=== PATIENT | male | born 1975 | race Caucasian/White ===

== ENCOUNTER 2023-03-15 19:29 | Emergency (ER) | payer BC, OTHER ==
--- OUTSIDE RECORDS SUMMARY | 2023-03-15 19:36 | XMS REPORT | Continuity of Care Document ---
:1975 Author Organization [facility] t Address [address] [facility] [address] [place] [id number] Care Team Providers Name Role Phone JANKI LEDESMA Primary Care Physician Unavailable Adriana Murguia MD Attending Clinician Kaden MARTIN, Matilda Rayo Attending Clinician Carlo Garcia MD Attending Clinician Zina MARTIN, Pawel Parker Attending Clinician [phone] Bernardino Albarran MD Attending Clinician Radha Metzger CRNA Attending Clinician [phone] Bernardino Rubio MD Attending Clinician [phone] TRU KAN Attending Clinician Unavailable DANIELLA BUI Attending Clinician Unavailable CRISTOBAL JONES Attending Clinician Unavailable ADRIANA JASSO Attending Clinician Unavailable FLETCHER RHOADES Attending Clinician Unavailable GERALD LEMUS Attending Clinician Unavailable Fay Finley Attending Clinician Abrahan Purvis Attending Clinician CARLO GARCIA Admitting Clinician Unavailable MD MATILDA ALFONSO Admitting Clinician Unavailable DANIELLA BUI Admitting Clinician Unavailable CHECO NAJERA Admitting Clinician Unavailable ALCIRA ROSE Admitting Clinician Unavailable GERALD LEMUS Admitting Clinician Unavailable Fay Finley Admitting Clinician VannesaErika Admitting Clinician Payers Payer Name Policy Type Policy Number Effective Date Expiration Date Soo RIOS [id number] 2019 2020 ACCESS 00:00:00 00:00:00 CDC REVIEW [id number] 2020 2020 UNINSURED 00:00:00 00:00:00 Problems Condition Condition Condition Status Onset Resolution Last Treating Co mments Source Name Details Category Date Date Treatment Clinician Date Primary Primary Disease Active [facility] hypertensi hypertensi 04-14 st on on 00:00: Hospita 00 l Type 2 Type 2 Disease Active [facility] diabetes diabetes 04-14 st mellitus mellitus 00:00: Hospit a 00 l Abnormal Abnormal Disease Active Overview: [facility] stress ECG [facility] 10[facility] with 00:[facility]: g of this Medical treadmill treadmill 00 note Cent er might be different from the original. Added automatic ally from request for surgery [id number] Chest Chest Disease Active 2018-[address] [facility] pain, pain, 1-25 [facility] unspecifie unspecifie 00:00: Me dical d type d type [address] [place] [address] CHEST PAIN CHEST Diagnosis Active 2017-03-06 Memoria SINCE LAST PAIN SINCE 03-06 12:41:00 l NIGHT LAST NIGHT 00:00: Jose Alfredo egan Active 00 03/06/2017 [facility] CHEST PAIN CHEST Diagnosis Active 2017-03-13 Memoria PAIN 03-06 10:46:00 l Active 00:00: Eleazar 03/06/2017 00 [facility] RIGHT HAND RIGHT Diagnosis Active 2014-03-22 Memoria FX HAND FX 03-22 14:39:00 l Active 00:00: Eleazar 03/22/2014 00 [facility] ACS R/O ACS R/O Diagnosis Active 2014-03-23 Memoria Active 03-22 10:41:00 l 03/22/2014 00:00: Jose Alfredo egan [address] Dyspnea Dyspnea Problem Active 2017-03-10 Me moria (finding) (finding) 01:36:49 l Active Eleazar Problem 03/10/2017 [facility] Obstructiv Obstructi Problem Active 2020-07-05 Memoria e sleep ve sleep 02:00:51 l apnea apnea Eleazar (adult) (adult) (pediatric (pediatric ) ) Active Problem 07/05/2020 [facility] CHEST PAIN CHEST Diagnosis Active 2014-03-23 Memoria NOS PAIN NOS 10:41:00 l Active Jose Alfredo egan [facility] CHEST CHEST Diagnosis Active 2017-03-13 Mem oria PAIN, PAIN, 10:46:00 l UNSPECIFIE UNSPECIFIE He rmann D D Active [facility] Hypertensi Hypertens Problem Resolve 2017-03-10 Memoria ve krystian d 01:36:49 l disorder, disorder, Herm jose systemic systemic arterial arterial (disorder) (disorder) Resolved Problem 03/10/2017 [facility] Diabetes Diabetes Disease Recurre [facility] mellitus mellitus [facility] Hyperlipid Hyperlipid Disease Active [facility] Sleep Sleep Disease Active [facility] apnea apnea [facility] Allergies, Adverse Reactions, Alerts Allergy Allergy Status Severity Reaction(s) Onset Inactive Treating Comm ents Source Name Type Date Date Clinician QUINOLON Allergy Active Hives 2018- [facility] ES 1- 00:00: 00 Quinolon Propensi Active Hives 2018-[address] es ty to 1-25 [facility] adverse 00:00: Medical reaction 00 Center s Other Propensi Active Hives 2017-09 Flu[facility] Metho di ty to 2-[address] adverse 00:00: Hospita reaction 00 l s quinolon quinolon Active Tomásori a e e l antibiot antibiot Jose Alfredo egan ics ics Family History Family Member Diagnosis Comments Start Date Stop Date Source Natural father Hypertension [facility] Natural father Hypothyroidism [facility] Natural father Diabetes [facility] Natural father [facility] Natural father Heart disease [facility] Natural father Hyperlipidemia [facility] Natural father Diabetes [facility] Natural father Heart disease [facility] Natural father Hyperlipidemia [facility] Natural father Hypertension [facility] Maternal grandmother Cancer [facility] Maternal grandmother Nephrolithiasis [facility] Paternal grandmother Cancer [facility] Maternal grandfather Heart disease [facility] Natural mother Skin cancer [facility] Social History Social Habit Start Date Stop Date Quantity Comments Source History of tobacco Chews Tobacco [facility] Sexual orientation [facility] History [facility] History of Social 2022-04-18 2022-04-[address] function 00:00:00 00:00:00 Hospital Tobacco use and 2022-04-14 2022-04-14 User of [facility] exposure 00:00:00 00:00:00 smokeless Hospital tobacco History [facility] 2022-01-08 2022-01-[address] [facility] Places 00:00:00 00:00:00 Medical Ce nter Lived History [facility] 2022-01-08 2022-01-08 2 [facility] Homeless 00:00:00 00:00:00 Medical Center Last Year History [facility] 2022-01-08 2022-01-08 2 [facility] Med 00:00:00 00:00:[address] [facility] 2022-01-08 2022-01-08 2 [facility] Unable to 00:00:00 00:00:00 Medical Center Pay Alcohol intake 2022-01-07 2022-01-07 Current drinker [facility] 00:[facility]00 of alcohol [facility] Center (finding) Alcohol Comment 2020-10-16 2020-10-16 socially [facility] eileen 00:00:00 00:00:00 Medical Center Social History 2017-03-07 2017-03-07 [facility] kenya 02:11:50 02:11:50 Sex Ass[birth year] At [birth year] [facility] 00:00:00 00:00:00 Medical Center Smoking Status Start Date Stop Date Source Never smoked tobacco [facility] Medications Ordered Filled Start Stop Current Ordering Indication Dosage Frequency Signature Comments Components Source Medication Medication Date Date Medication? Clinician (SIG) Name Name metFORMIN Yes 1000mg Q.5D Take 1,000 [facility] (GLUCOPHAGE 8-[address] ) 1,000 mg 17:01: mouth 2 Hosp melany tablet 14 (two) l times a day with meals. carvediloL 2022-0 Yes 6.25mg Q.5D Take 6.25 [facility] (COREG) 8-[address] 6.25 MG 17:01: mouth 2 Hospita tablet 14 (two) l times a day with meals. isosorbide 2021-0 Yes 30mg QD Take 30 mg M ethodi mononitrate 8-[address] (IMDUR) 30 17:01: daily. Hospi ta MG 24 hr 14 l tablet pantoprazol 2021-0 Yes 40mg QD Take 40 mg Methodi e 8-[address] (PROTONIX) 17:01: daily. Hospi ta 40 MG EC 14 l tablet ranolazine 2021-0 Yes 500mg Q.5D Take 500 Me thodi (RANEXA) 8-[address] 500 MG 12 17:01: mouth 2 Hospi ta hr ER 14 (two) l tablet times a day. fenofibrate 2021-0 Yes 54mg QD Take 54 mg [facility] (LOFIBRA) 8-[address] 54 MG 17:01: nightly. Hospita tablet 14 l glipiZIDE 2021-0 Yes 5mg QD Take 5 mg Met hodi (GLUCOTROL) 8-[address] 5 MG tablet 17:01: daily. Hosp melany 14 l aspirin 2021-0 Yes 81mg QD Take 81 mg Meth ganga (ECOTRIN) 8-[address] 81 MG 17:01: nightly. Hospita enteric 14 l coated tablet atorvastati 2021-0 2021- No 40mg QD Take 40 mg Methodi n (LIPITOR) 8-10 08-[address] 40 mg 17:01: 00:00 nightly. Hospita tablet 14 :00 l famotidine 2021-0 2021- No 20mg Q.5D Take 1 Meth ganga (Pepcid) 20 04-15-08 tablet (20 s t MG tablet 00:00: 04:59 mg total) Ho spita 00 :00 by mouth 2 l (two) times a day for 30 days. dicyclomine 2021-0 2021- No 20mg Q.25D Take 1 Me thodi (BENTYL) 20 04-15-08 tablet (20 s t mg tablet 00:00: 04:59 mg total) Ho spita 00 :00 by mouth 4 l (four) times a day for 30 days. nitroglycer 2021- No .3mg QD Place 1 Me thodi in 04-15 patch (0.3 st (Nitro-Dur) 00:00: 04:59 mg total) Hospita 0.3 mg/hr 00 :00 on the l skin daily for 30 days. rosuvastati 2021- No 20mg QD Take 1 Met hodi n (CRESTOR) 04-15 tablet (20 s t 20 mg 00:00: 04:59 mg total) Hospit a tablet 00 :00 by mouth l daily for 30 days. carvediloL Yes 6.25mg Take 6.[address] (COREG) 5-05 mg by [facility] 6.25 MG 13:43: mouth 2 Medical tablet 01 (two) Center times daily with breakfast and dinner. atorvastati Yes 40mg QD Take [address] n (LIPITOR) 5-05 by mouth Luke s 40 MG 13:43: nightly. Medical tablet 01 Center multivitami Yes 1{tbl} QD Take [address] n 5-04 tablet by [facility] (THERAGRAN) 13:43: mouth Medic al tablet 38 nightly. Center metFORMIN Yes 1000mg Take [address] (GLUCOPHAGE 2-11 tablet [facility] ) 1000 MG 00:00: (1,000 mg Med ical tablet 00 total) by Center mouth 2 (two) times daily with breakfast and dinner. fenofibrate Yes 54mg QD Take [address] (LOFIBRA) 2-09 tablet (54 Luke s 54 MG 00:00: mg total) Medical tablet 00 by mouth Center nightly. aspirin 81 Yes 81mg QD Take 1 [facility] t MG EC 2-09 tablet (81 [facility] tablet 00:00: mg total) Medica l 00 by mouth Center nightly. olmesartan Yes 20mg QD Take 1 [facility] t (BENICAR) 2-09 tablet (20 Luke s 20 MG 00:00: mg total) Medical tablet 00 by mouth Center nightly. amoxicillin 2017-09- No Metho di -pot -18 04-16 st clavulanate 00:00: 00:00 Hospi ta (AUGMENTIN) 00 :00 l 875-125 mg per tablet olmesartan 2017-09 Yes Methodi (BENICAR) 10-22 st 20 MG 00:00: Hospita tablet 00 l rosuvastati 2017-09- No Metho di n (CRESTOR) 10-21 st 40 MG 00:00: 00:00 Hospita tablet 00 :00 l metoprolol 2017-09- No Method i succinate 10-12 st XL 00:00: 00:00 Hospita (TOPROL-XL) 00 :00 l 25 mg 24 hr tablet metFORMIN 2017-09- No Methodi (GLUCOPHAGE 09-21 ) 500 mg 00:00: 00:00 Hospita tablet 00 :00 l testosteron 2017-09 Yes Method i e cypionate 09-20 (DEPOTESTOT 00:00: Hospit a ERONE 00 l CYPIONATE) 200 mg/mL injection Lipitor No Notes: Memoria 7- (Same as: l 02:00: Lipitor) aspirin 81 Yes 81 mg = 1 Me moria mg tablet, 6-30 tab, PO, l enteric 21:51: Daily, # Jose Alfredo n coated 00 30 tab, 0 Refill(s), Pharmacy: [facility] atorvastati Yes 40 mg = 1 M emoria n 40 mg 6-30 tab, PO, l oral tablet 21:51: Bedtime, # Eleazar 00 30 tab, 0 Refill(s), Pharmacy: [facility] aspirin 81 No Notes: Do Me moria mg tablet, 6-30 not crush l enteric 14:00: or chew. Jose Alfredo n coated 00 (Same As: Ecotrin) Morphine No Notes: Memoria 6-30 (Same l 03:11: as:MORPhin e Sulfate) Saline No Notes: Memoria Flush 0.9% 6-30 (Same as: l 02:00: BD Posiflush) CPAP No Bedtime, 0 Memoria Machine 6-29 Refill(s) l 17:15: Escitalopra Yes 10 mg = 1 M emoria m 10 MG 03-06 tab, PO, l Oral Tablet 17:13: Daily, 0 He rmann [Lexapro] 00 Refill(s) metoprolol Yes 25 mg = 1 Me moria tartrate 25 03-06 tab, PO, l mg oral 17:12: QAM, 0 [place] tablet 00 Refill(s) atorvastati No 20 mg, PO, Memoria n 03-06 Daily, 0 l 15:07: Refill(s) [place] metoprolol No PO, Daily, M emoria extended 03-06 0 l release 15:07: Refill(s) Lynda nn 00 Benicar Yes 20 mg, PO, Aj melchor 03-06 QPM, 0 l 15:07: Refill(s) Saline No Notes: Memoria Flush 0.9% 03-06 (Same as: l 15:06: BD Posiflush) Adenosine No 99.2729 Memor ia 03-06 mg, Route: l 15:06: IVP, ONCE, Dosing Weight 118.182, kg, Priority: Routine, Start date: 03/06/17 10:06:00 CDT, Stop date: 03/06/17 10:06:00 CDT Ondansetron No Notes: Aj melchor 03-06 (Same as: l 15:06: Zofran) Morphine No Notes: Memoria 03-06 (Same l 15:06: as:MORPhin e Sulfate) Nitroglycer No Notes: Aj melchor in 03-06 (Same l 15:06: as:Nitroqu ick, Nitrostat) "Do Not Crush" Sublingual tablet Nitroglycer No 0.4 mg, Mem oria in 03-06 Route: SL, l 13:22: ONCE, Dosing Weight 118.182, kg, Priority: STAT, Start date: 03/06/17 8:22:00 CDT, Stop date: 03/06/17 8:22:00 CDT Aspirin No 325 mg, Memoria 03-06 Route: PO, l 13:22: Drug form: Eleazar 00 TAB, ONCE, Dosing Weight 118.182, kg, Priority: STAT, Start date: 03/06/17 8:22:00 CDT, Stop date: 03/06/17 8:22:00 CDT atorvastati No 20 mg, Aj melchor n 7-17 Route: PO, l 02:00: Drug form: Eleazar 00 TAB, Bedtime, Dosing Weight 117.301, kg, Start date: 03/23/14 21:00:00, Duration: 30 day, Stop date: 04/21/14 21:00:00 atorvastati Yes 10 mg = 1 M emoria n 10 mg 7-16 tab, PO, l oral tablet 22:49: Bedtime, # Eleazar 00 30 tab, 0 Refill(s) Acetaminoph Yes 1 tab, PO, Memoria en 325 MG / 03-23 Q4H, Pain, l Hydrocodone 22:45: # 50 tab, H ermann Bitartrate 00 0 5 MG Oral Refill(s) Tablet [[place] 5/325] tramadol Yes 50 mg = 1 Aj melchor hydrochlori -16 tab, PO, l de 50 MG 22:45: Q6H, # 50 Herm jose Oral Tablet 00 tab, 0 Refill(s) metoprolol Yes 25 mg = 1 Me moria tartrate 25 7-16 tab, PO, l mg oral 22:45: Daily, # Jose Alfredo n tablet 00 30 tab, 0 Refill(s) atorvastati No 20 mg = 1 M emoria n 20 mg 7-16 tab, PO, l oral tablet 22:45: Bedtime, # Eleazar 00 30 tab, 0 Refill(s) tramadol No Notes: Not Mem oria hydrochlori 16 to exceed l de 50 MG 20:57: 400mg/day. Her redmond Oral Tablet 00 (Same As: Ultram) Acetaminoph No Notes: Aj melchor en 325 MG / 03-23 (Same as: l Hydrocodone 17:09: [place] Lynda nn Bitartrate 00 325/5) Do 5 MG Oral not exceed Tablet 4gm/day of [[place] acetaminop 5/325] hen. metoprolol No Notes: Memor ia tartrate -16 (Same as: l 14:00: Lopressor) [place] Saline No Notes: Memoria Flush 0.9% 03-23 (Same as: l 02:00: BD [place] Posiflush) Morphine No 4 mg, Memoria 03-22 Route: l 23:09: IVP, ONCE, [place] Dosing Weight 118.182, kg, Start date: 03/22/14 18:09:00, Stop date: 03/22/14 18:09:00 metoprolol No 25 mg, Memor ia tartrate 03-22 Route: PO, l 23:00: Drug form: Eleazar TAB, Q6H, Dosing Weight 118.182, kg, Start date: 03/22/14 18:00:00, Duration: 30 day, Stop date: 04/21/14 12:00:00 potassium No Notes: Memori a phosphate-s 03-22 Non-Fomrul l odium 23:00: ghada Drug. [place] phosphate (Same as: 250 mg-45 K-Phos) mg-298 mg oral tablet metoprolol No Notes: Memor ia tartrate 03-22 (Same as: l 22:00: Lopressor) [place] 00 Neutra-Phos No Notes: Aj melchro oral powder 03-22 (Same as: l 21:51: Neutra-Frandy [place] 00 s) Each 1.25 gm pkt has 250mg phosphorou s. Mix w/2.5oz water and stir. Acetaminoph No 1 tab, Aj melchor en 325 MG / 03-22 Route: PO, l Hydrocodone 21:37: Dosing Herm jose Bitartrate 00 Weight 5 MG Oral 118.182, Tablet kg, ONCE, [[place] Start ] date: 03/22/14 16:37:00, Stop date: 03/22/14 16:37:00 Saline No Notes: Memoria Flush 0.9% 03-22 (Same as: l 21:35: BD Eleazar Posiflush) Nitroglycer No Notes: Aj melchor in 03-22 (Same l 21:35: as:Nitroqu Eleazar 00 ick, Nitrostat) "Do Not Crush" Sublingual tablet Morphine No Notes: Memoria 15 (Same l 21:35: as:MORPhin Eleazar 00 e Sulfate) Ondansetron No Notes: Aj melchor 15 (Same as: l 21:35: Zofran) Eleazar 00 Aspirin / No Notes: (Do Me moria Calcium 03-22 Not Crush) l Carbonate 18:35: Do not Jose Alfredo n 00 crush or chew. Acetaminoph No 1 tab, Aj melchor en 325 MG / 03-22 Route: PO, l Hydrocodone 18:16: Dosing Herm jose Bitartrate 00 Weight 5 MG Oral 118.182, Tablet kg, ONCE, [[place] Start 5/325] date: 03/22/14 13:16:00, Stop date: 03/22/14 13:16:00 Immunizations Ordered Immunization Filled Immunization Date Status Commen ts Source Name Name INFLUENZA (FLULAVAL, 2020-05-05 Completed [facility] FLUARIX)_0.5mL 00:00:00 Medical Ce nter QIV_IM (06mo+)([id number]) Vital Signs Vital Name Observation Time Observation Value Comments Source WEIGHT 2022-01-09 05:00:00 117.663 kg WEIGHT 2022-01-08 04:42:00 117.3 kg WEIGHT 2022-01-07 18:36:27 118.48 kg HEIGHT 2022-01-07 14:30:00 180.3 cm WEIGHT 2022-01-07 14:30:00 120.203 kg WEIGHT 2022-01-09 05:00:00 117.663 kg WEIGHT 2022-01-08 04:42:00 117.3 kg WEIGHT 2022-01-07 18:36:27 118.48 kg HEIGHT 2022-01-07 14:30:00 180.3 cm WEIGHT 2022-01-07 14:30:00 120.203 kg HEIGHT 2020-10-16 16:44:00 180.3 cm WEIGHT 2020-10-16 16:44:00 121.11 kg HEIGHT 2020-10-16 10:15:00 180.3 cm WEIGHT 2020-10-16 10:15:00 122.471 kg HEIGHT 2020-10-16 16:44:00 180.3 cm WEIGHT 2020-10-16 16:44:00 121.11 kg HEIGHT 2020-10-16 10:15:00 180.3 cm WEIGHT 2020-10-16 10:15:00 122.471 kg Systolic blood 2022-04-16 19:56:35 154 mm[Hg] [facility] pressure Diastolic blood 2022-04-16 19:56:35 98 mm[Hg] [facility] pressure Heart rate 2022-04-16 19:56:35 83 /min [facility] Body temperature 2022-04-16 19:56:35 36.17 Id[facility] Respiratory rate 2022-04-16 19:56:35 16 /min [facility] Oxygen saturation in 2022-04-16 19:56:35 100 /min [facility] Arterial blood by Pulse oximetry Body height 2022-04-16 17:03:00 177.8 cm [facility] Body weight 2022-04-16 17:03:00 106.595 kg [facility] BMI 2022-04-16 17:03:00 33.72 kg/m2 [facility] Heart Rate 2017-03-07 20:15:00 [facility] Temperature Oral (F) 2017-03-07 20:15:00 97.0 F [facility] Systolic (mm Hg) 2017-03-07 20:15:00 Aj rial [place] Diastolic (mm Hg) 2017-03-07 20:15:00 Mem orial Eleazar Respitory Rate 2017-03-07 20:15:00 Memori al [place] Heart Rate 2017-03-07 18:25:00 [facility] Ele[facility] Respitory Rate 2017-03-07 18:25:00 Memori al [place] Systolic (mm Hg) 2017-03-07 18:25:00 Aj rial [place] Diastolic (mm Hg) 2017-03-07 18:25:00 Mem orial [place] Temperature Oral (F) 2017-03-07 18:25:00 97.2 F [facility] Temperature Oral (F) 2017-03-07 12:02:00 96.6 F [facility] [place] Heart Rate 2017-03-07 12:02:00 [facility] Respitory Rate 2017-03-07 12:02:00 Memori al [place] Systolic (mm Hg) 2017-03-07 12:02:00 Aj rial [place] Diastolic (mm Hg) 2017-03-07 12:02:00 Mem orial Eleazar Height 2017-03-06 14:27:00 180.34 cm [facility] [place] Weight 2017-03-06 14:27:00 [facility] BMI Calculated 2017-03-06 14:27:00 Memori al [place] BMI Calculated 2017-03-06 13:03:00 Memori al [place] Weight 2017-03-06 13:03:00 [facility] Ele[facility] Height 2017-03-06 13:03:00 180.34 cm [facility] [place] Diastolic (mm Hg) 2014-03-23 13:02:00 Mem orial [place] Systolic (mm Hg) 2014-03-23 13:02:00 Aj rial [place] Respitory Rate 2014-03-23 13:02:00 Memori al [place] Heart Rate 2014-03-23 13:02:00 [facility] Ele[facility] Temperature Oral (F) 2014-03-23 13:02:00 98.2 F [facility] [place] Temperature Oral (F) 2014-03-23 08:36:00 97.6 F [facility] [place] Heart Rate 2014-03-23 08:36:00 [facility] [place] Diastolic (mm Hg) 2014-03-23 08:36:00 Mem orial Eleazar Respitory Rate 2014-03-23 08:36:00 Memori al [place] Systolic (mm Hg) 2014-03-23 08:36:00 Aj rial [place] Diastolic (mm Hg) 2014-03-23 04:17:00 Mem orial [place] Systolic (mm Hg) 2014-03-23 04:17:00 Aj rial [place] Temperature Oral (F) 2014-03-23 04:17:00 97.4 F [facility] [place] Respitory Rate 2014-03-23 04:17:00 Memori al [place] Heart Rate 2014-03-23 04:17:00 [facility] [place] Height 2014-03-23 01:46:00 180.34 cm [facility] [place] Weight 2014-03-23 01:46:00 [facility] BMI Calculated 2014-03-23 01:46:00 Memori al [place] Weight 2014-03-22 17:49:00 [facility] BMI Calculated 2014-03-22 17:49:00 Tomásori al Eleazar Height 2014-03-22 17:49:00 172.72 cm [facility] Procedures Procedure Date / Time Performing Clinician Source Performed SURGICAL PATHOLOGY 2022-04-16 18:42:00 [facility] REQUEST O. EGD WITH BIOPSY 2022-04-16 18:36:00 Bernardino Rubioothy POC GLUCOSE 2022-04-16 13:14:00 [facility] O. CBC WITH PLATELET AND 2022-04-16 10:55:00 [facility] DIFFERENTIAL BASIC METABOLIC PANEL 2022-04-16 10:55:00 [facility] HEPATIC FUNCTION PANEL 2022-04-16 10:55:00 [facility] ESTIMATED GFR 2022-04-16 10:55:00 Carlo Garcia POC GLUCOSE 2022-04-15 22:14:00 Carlo Garcia spinicolle TTE COMPLETE, WO 2022-04-15 15:23:00 [facility] CONTRAST, W DOPPLER ([id number]) POC GLUCOSE 2022-04-15 13:25:00 Carlo Garcia ZZCOVID-19 SEROLOGY 2022-04-15 09:52:[address] [facility] PATIENT SURVEILLANCE ZZCOVANDANAD-19 ANTI-SPIKE IGG 2022-04-15 09:52:00 [facility] ANTIBODY TITER LIPID PANEL 2022-04-15 09:43:00 [facility] CBC WITH PLATELET AND 2022-04-15 09:43:00 [facility] DIFFERENTIAL BASIC METABOLIC PANEL 2022-04-15 09:43:00 [facility] HEMOGLOBIN A1C 2022-04-15 09:43:00 [facility] ESTIMATED GFR 2022-04-15 09:43:00 [facility] POC GLUCOSE 2022-04-15 01:50:00 [facility], [facility] TROPONIN T 2022-04-14 23:39:00 [facility], [facility] POC GLUCOSE 2022-04-14 22:48:00 [facility] COVID-19 QUALITATIVE 2022-04-14 21:37:[address] [facility] RT-PCR TROPONIN T 2022-04-14 20:44:[address] [facility] [address] ANGIOGRAM CHEST W WO 2022-04-14 19:50:33 Rajinder Pak [facility] CONTRAST ECG ED PRELIMINARY 2022-04-14 19:14:30 Rajinder Pak [facility] INTERPRETATION XR CHEST 1 VW PORTABLE 2022-04-14 18:41[facility]00 [facility] WITH PLATELET AND 2022-04-14 18:04:00 [facility] DIFFERENTIAL COMPREHENSIVE METABOLIC 2022-04-14 18:04:00 [facility] PANEL TROPONIN T 2022-04-14 18:04:00 [facility] B NATRIURETIC PEPTIDE 2022-04-14 18:04:00 [facility] PARTIAL THROMBOPLASTIN 2022-04-14 18:04:00 [facility] TIME (PTT) PROTHROMBIN TIME WITH INR 2022-04-14 18:04:00 [facility] ESTIMATED GFR 2022-04-14 18:04:00 [facility] ECG 12-LEAD 2022-04-14 17:56:39 [facility] Plan of Care Planned Activity Planned Date Details Comments Source Future Scheduled 2025-01-[address] 00:[facility]00 (procedure) [code = Medical Center 30252412] Future Scheduled 2023-05-09 Influenza Vaccine (#1) [facility] 00:00:00 [code = Influenza Medical Ce nter Vaccine (#1)] Future Scheduled 2023-02-21 [facility] 08:15:30 malignant neoplasm of colon (procedure) [code = 144274445] Future Scheduled 2023-02-21 [facility] Test 08:15:30 malignant neoplasm of colon (procedure) [code = 394911192] Future Scheduled 2023-02-21 [facility] Test 08:15:30 malignant neoplasm of colon (procedure) [code = 674637195] Future Scheduled 2023-02-21 Pneumococcal Vaccine: [facility] Test 08:15:30 Pediatrics (0 to 5 Years) and At-Risk Patients (6 to 64 Years) (1 - PCV) [code = Pneumococcal Vaccine: Pediatrics (0 to 5 Years) and At-Risk Patients (6 to 64 Years) (1 - PCV)] Future Scheduled 2023-02-21 DIABETES: [facility] [facility] 08:15:30 EXAM [code = DIABETES: RETINAL EYE EXAM] Future Scheduled 2023-02-21 DIABETIC FOOT EXAM [facility] Test 08:15:30 [code = DIABETIC FOOT EXAM] Future Scheduled 2023-02-21 URINE [facility]ALBUMIN [facility] Test 08:15:30 [code = URINE MICROALBUMIN] Future Scheduled 2023-02-21 Hepatitis C screening [facility] Test 08:15:30 (procedure) [code = 303142983] Future Scheduled 2023-02-21 [facility] Test 08:15:30 malignant neoplasm of colon (procedure) [code = 644246733] Future Scheduled 2023-02-21 [facility] Test 08:15:30 malignant neoplasm of colon (procedure) [code = 566772312] Future Scheduled 2023-02-21 COVID-19 VACCINE (4 - [facility] Test 08:15:30 Moderna series) [code = COVID-19 VACCINE (4 - Moderna series)] Future Scheduled 2023-02-21 [facility]FLUENZA [facility]ACCINE [facility] 08:15:30 [code = INFLUENZA VACCINE] Future Scheduled 2023-01-[address] [facility] Test 00:00:00 Counseling and Medical Cente r Screening (12+) [code = Tobacco Cessation Counseling and Screening (12+)] Future Scheduled 2022-09-[address] [facility] Test 00:00:00 (12+) [code = Medical Center DEPRESSION SCREENING (12+)] Future Scheduled 2022-04-[address] [facility] Center (procedure) [code = 91661134] Future Scheduled 1992 DTAP/TDAP/TD VACCINES [facility] Test 00:00:00 (1 - Tdap) [code = Medical C enter DTAP/TDAP/TD VACCINES (1 - Tdap)] Future Scheduled 1991 HEPATITIS C SCREENING [facility] Test 00:00:00 [code = HEPATITIS C Medical Center SCREENING] Future Scheduled [address] DIABETIC EYE EXAM [facility] Test 00:00:00 [code = DIABETIC EYE Medical Center EXAM] Future Scheduled [address] [facility] Center (regime/therapy) [code = 935932922] Future Scheduled 1983 Urine screening for [facility] Test 00:00:00 protein (procedure) Medical Center [code = 462361054] Future Scheduled 1979 Pneumococcal Vaccine: [facility] Test 00:00:00 0-64 Years (1 - PCV) Medical Center [code = Pneumococcal Vaccine: 0-64 Years (1 - PCV)] Future Scheduled 1974-04-13 COVID-19 VACCINE (#1) [facility] Test 00:00:00 [code = COVID-[address] VACCINE (#1)] Future Scheduled [address] [facility] Test 00:00:00 (combo) [code = CT Medical C enter Colonography (combo)] Future Scheduled [address] [facility] Test 00:[facility]:00 malignant neoplasm of [facility] colon (procedure) [code = 177758972] Future Scheduled [address] [facility] 00:00:00 malignant neoplasm of [facility] colon (procedure) [code = 326327284] Future Scheduled [address] [facility] Test 00:00:00 malignant neoplasm of [facility] colon (procedure) [code = 738125946] Future Scheduled [address] [facility] Test 00:00:00 malignant neoplasm of [facility] Center colon (procedure) [code = 813836573] Future Scheduled 1975 S[facility]oscopy] Medical [facility] r Encounters Start End Encounter Admission Attending Care Care Encounter Source Date/Time Date/Time Type Type Clinicians Facility Department ID 2022-04-14 2022-04-16 [facility] Murguia Adriana Hi 1.2.840.1 [id number] Methodi 13:14:00 17:01:00 Encounter Matilda Alfonso Perri [id number] Carlo Garcia 3.430.2.7 Hospi ta Zina, Nomanemisi O. .3.931045 l .8 2022-04-16 2022-04-16 Anesthesia Bernardino Albarran 1.2.840.1 [id number] Methodi 13:36:00 13:49:00 Event MollybonnyRadha [address]22.1.[address] 3.430.2.7 Hospit a .3.794083 l .8 2022-04-16 2022-04-16 Surgery Ramiro 1.2.840.1 [id number] Methodi 13:00:00 13:15:[address] Rafat 3.430.2.7 Hospit a .3.341663 l .8 2022-04-14 2022-04-16 [facility] [id number] [facility] 00:00:00 00:00:00 OLUYEMISI [address] 2022-01-16 2022-01-16 Outpatient ZO KAN [facility] [id number] 00:00:00 00:00:00 [facility] 2022-01-07 2022-01-09 Inpatient ER RAMYA [facility] Emergency [id number] [facility] 14:34:00 13:43:00 DANIELLA 2020-10-16 2020-10-16 Emergency ER [facility] Emergency [id number] [facility] 10:08:00 10:08:00 2020-06-27 2020-06-27 Outpatient Pulmonary Pulmonary 186 430 [facility] 11:11:00 11:11:00 Crit Care Crit Care & alWorks & Monotype Operator PA Monotype Operator PA 2020-04-26 2020-04-26 Outpatient Pulmonary Pulmonary 179 214 [facility]inic 13:21:00 13:21:00 Crit Care Crit Care & alWorks & Monotype Operator PA Monotype Operator PA 2020-04-26 2020-04-26 Outpatient Pulmonary Pulmonary 179 186 eClinic 13:21:00 13:21:00 Crit Care Crit Care & alWorks & Monotype Operator PA Monotype Operator PA 2017-03-06 2017-03-07 Observatio [facility] [id number] Memoria 12:56:00 22:13:00 n r Eleazar 03 l [facility] 2017-03-06 2017-03-07 Outpatient Malia [facility] [id number] 07:56:00 17:13:00 Mohamed David 03 2014-03-22 2014-03-23 [facility] [id number] Memoria 17:21:00 23:30:00 Observatio valery Bush 02 l n Patient [facility] 2014-03-22 2014-03-23 Outpatient Nichva, 2.16.840. 2.16.840.1. 3 [id number] 12:21:00 18:30:00 Asma Eduardo 1.996298. 337720.3.61 02 3.615.0.1 5.0.101 01 Results Test Description Test Time Test Comments Results Result Comments Source ECG 12 lead 2022-04-18 00:13:32 Test Item Value Reference Range Interpretation Comme nts Ventricular rate (test code = 253) 89 Atrial rate (test code = 255) 89 LA interval (test code = 266) 150 QRSD interval (test code = 260) 76 QT interval (test code = 264) 364 QTC interval (test code = 265) 442 P axis 1 (test code = 267) 35 QRS axis 1 (test code = 268) 51 T wave axis (test code = 270) 25 EKG impression (test code = 273) Normal sinus rhythm-Normal ECG-In automated comparison with ECG of 07-AUG-2022 12:56,-[facility] [id number] 19:28:27 Test Item Value Reference Range Interpretation Comments Case number (test code = [id number]) Surgical pathology See link below for report (test code = PDF Lab Report [id number]) Result status (test code This is Final Report = [id number]) for [id number] [facility] [id number] 13:16:00 Test Item Value Reference Range Interpretation Comments POC glucose (test code 139 mg/dL 65-99 H Opera tor Name: Micaela = [id number]) EstradaDevice I D: [id number] Lab Interpretation Abnormal (test code = 70440-6) [facility], (w Contrast, Strain and 3D if needed)2022-04-15 22:09:31 Test Item Value Reference Interpretation Comments Range Ao Root Diameter 4.55 cm <=3.99 A (test code = 6139309784) AoV Area, Vmax (test 2.82 cm2 >=1.5 code = 6490191962) AoV Area, VTI (test 2.61 cm2 code = 4469653193) AoV Mean PG (test 3.52 See_Comment [Automate d code = 2829506977) message] The system which generated this result transmitted reference range : 20 mmHg. The reference range was not used to interpret this result as normal/abnormal . AoV Peak PG (test 5.76 mmHg code = 6372320152) AoV Vmax (test code 1.20 m/s = 5925546992) AoV VTI (test code = 0.23 m 0197161003) BSA Collins (test code 2.35 m2 = 6275689167) BSA (test code = 2.26 m2 2136939695) IVS,d (test code = 1.14 cm 0.6-0 9461883049) IVS/LVPW,2D (test 1.19 code = 0510976291) Left Atrium 2.85 cm <=4 Dimension Anterior (test code = 1372062662) LV,d (test code = 4.84 cm 1135816903) LV EF,2D (test code 58.35 % = 1214820054) LV EF,A2C (test code 47.62 % = 0719780058) LV EF,A4C (test code 57.53 % = 6633471100) LV EF,BP (test code 53.19 % = 0037241236) Wei [place],d A2C (test 8.18 cm code = 2933998884) Wei [place],d A4C (test 8.51 cm code = 3871665478) Wei [place],s A2C (test 7.08 cm code = 9291086233) Wei [place],s A4C (test 7.25 cm code = 0961890921) LV,s (test code = 3.61 cm 0352215605) LV SV,A2C (test code 31.76 % = 2048595844) LV SV,A4C (test code 59.40 % = 4669955153) LV SV,BP (test code 44.86 % = 9847257750) LV Vol,d A2C (test 66.69 mL code = 4033272135) LV Vol,d A4C (test 103.25 ml code = 4321958654) LV Vol,d BP (test 84.34 ml code = 6099874253) LV Vol,s A2C (test 34.93 mL code = 9335234371) LV Vol,s A4C (test 43.86 ml code = 0590329240) LV Vol,s BP (test 39.48 nl code = 3026146279) LVOT area (test code 3.97 cm2 = 0262279776) LVOT Diam,S (test 2.25 cm code = 5416126182) LVOT Vmax (test code 0.85 m/s = 7600156110) LVOT VTI (test code 0.15 m = 2183517880) LVPWD,d (test code = 0.95 cm 0.60-1.19 9761043705) PV Pk Grad (test 2.32 See_Comment [Automated code = 7821233467) message] The system which generated this result transmitted reference range : 36 mmHg. The reference range was not used to interpret this result as normal/abnormal . PV VMAX (test code = 0.76 m/s <=3 8567032940) RVOT Vmax (test code 0.58 m/s = 1791975720) MV E A ratio (test 0.96 code = 0634575360) RA pressure (test 3.00 mmHg code = 9625204471) AoV area i VTI BSA 1.16 cm2/m2 >=0.85 Yanira (test code = 2107919012) LV SI MOD BP BSA 19.86 ml/m2 [place] (test code = 7623500941) LV Vol Index s bpmod 37.33 ml/m2 BSA [place] (test code = 2885793751) PV Vmn (test code = 17.48 m/s 5660694337) BMI (test code = 33.02 kg/m2 3488934394) E wave decelartion 207.35 See_Comment [Automat ed time (test code = message] T he 3373585102) system which generated this result transmitted reference range : 200 msec. The reference range was not used to interpret this result as normal/abnormal . MV Peak A Mehdi (test 0.50 m/s code = 2648595164) MV valve area p 1/2 3.66 cm2 method (test code = 4212092821) MV Peak E Mehdi (test 0.47 m/s code = 8084880288) MV stenosis pressure 60.13 ms <=150 1/2 time (test code = 1361639167) LVOT stroke volume 0.60 cm3 (test code = 5376303605) AV LVOT peak 2.90 mmHg gradient (test code = 2822191637) Ao Root Diameter 4.55 cm (test code = 9266073905) MV mean gradient 1.15 See_Comment [Automated (test code = message] The 0637275122) system which generated this result transmitted reference range : 5 mmHg. The reference range was not used to interpret this result as normal/abnormal . LV SYS VOL (test 54.84 ml 21-61 code = 6806420762) LV OVALLE VOL (test 109.39 ml 62-150 code = 8622951700) LA area s A4C (test 13.27 cm2 code = 1975276540) LV SI Teich 2D (test 24.15 ml/m2 code = 0904034916) LV SV Teich 2D (test 54.55 ml code = 9711904820) LV Vol s Teich PSAX 54.84 ml (test code = 4938752377) LVOT SI (test code = 26.26 ml/m2 3310572750) MR peak grad (test 2.09 mmHg code = 7931664663) MV Vmax (test code = 0.72 m 2358374883) MV VTI Tips (test 0.18 m code = 5861514543) RVOT pk grad (test 1.34 mmHg code = 3119628993) BSA [place] (test 2.35 m2 code = 7233652755) AoV Vmn (test code = 0.91 m/s 3193943432) IVS s 2D (test code 1.50 cm = 2822621051) LV FS Teich 2D (test 25.32 code = 3320812635) MV AE ratio (test 1.05 code = 8041847148) LV FS Cube 2D (test 25.32 code = 5207985192) LVOT Vmn (test code 0.55 = 6543685419) Pt Size (test code = 180.00 7202316227) Pt Wt (test code = 107.00 3921310033) Aov area Vmn (test 2.37 cm2 code = 4688709124) LVOT mean grad (test 1.40 mmHg code = 8764592690) MAX Pred HR (test 171.50 code = 7122178199) 85 of MPHR (test 145.77 code = 1103478152) AoV area I VMN bsa 1.05 cm2/m2 (test code = 5352172050) Calc MPHR (test code 171.50 bpm = 1284987760) IVS pct thck PLAX 31.53 % (test code = 7161781687) LV SI Cube 2D (test 29.21 ml/m2 code = 0668368458) LV SV Cube 2D (test 65.98 ml code = 3574133824) LV vol d cube 2D 113.07 ml (test code = 0340527790) LV vol s cube 2D 47.09 ml (test code = 0805267624) LVPW pct thck PLAX 43.03 % (test code = 3641245272) LVPW s PLAX (test 1.36 cm code = 8394726827) MV Decel slope (test 2.29 m/s2 code = 5361824420) Pred Exer Dur R1 10.47 (test code = 0018532742) Pred METS R1 (test 10.72 code = 1224258371) LA Vol MOD A4C (test 28.87 ml code = 1584813345) Velocity Ratio 0.71 m/s (V1/V2) (test code = 4689) EF (test code = 50 % 52-72 1006643048) E/A ratio (test code 0.94 <=0.8 = 4049833434) LV Systolic Volume 15.46 mL/m2 11-31 Index (test code = 3356530746) LV Diastolic Volume 29.51 mL/m2 34-74 Index (test code = 2521347069) LVOT VTI (CM) (test 15.00 cm code = 8833568221) TYREL (test code = TYREL) Left Ventricle: Normal systolic function with a visually estimated EF of 55 - 60%. Grade I (impaired relaxation) diastolic dysfunction. Normal left ventricular filling pressure. No wall motion abnormalities. Right Ventricle: Right ventricle size is normal. Normal systolic function. No significant valvular abnormalities. Pericardium: There is no pericardial effusion present. Aorta: Dilated aortic root. Left VentricleLeft ventricle size is normal. Normal wall thickness. Normal systolic function with a visually estimated EF of 55 - 60%. Grade I (impaired relaxation) diastolic dysfunction. Normal left ventricular filling pressure.Right VentricleRight ventricle size is normal. Normal systolic function.Left AtriumLeft atrium size is normal.Right AtriumRight atrium size is normal.IVC/SVCIVC diameter is less than or equal to 21 mm and decreases greater than 50% during inspiration; therefore the estimated right atrial pressure is normal (~3 mmHg).Mitral ValveValve structure is normal. No significant valvular regurgitation. No stenosis.Tricuspid ValveValve structure is normal. Trace valvular regurgitation. No stenosis.Aortic ValveValve structure appears tricuspid. No significant valvular regurgitation. No stenosis.Pulmonic ValveValve structure is normal. No significant valvular regurgitation. No stenosis.Pericardium There is no pericardial effusion present.AortaDilated aortic root.Study DetailsStudy quality was adequate. A complete 2D, color flow Doppler and spectral Doppler echocardiogram was performed.The apical, parasternal, subcostal and suprasternal views were obtained. Technical difficulties due to lung artifact. Lab Interpretation Abnormal (test code = 99914-6) [facility] (COVID-19) RNA [Presence] in Respiratory specimen by YEN with probe [id number] 22:53:04 Test Item Value Reference Range Interpretation Comments SARS-CoV-2 (COVID-19) RNA Not detected [Presence] in Respiratory specimen by YEN with probe detection (test code = 76569-8) Whether patient is employed in a Unknown healthcare setting (test code = 17713-5) Whether the patient has symptoms Unknown related to condition of interest (test code = 64914-7) Whether the patient was Unknown hospitalized for condition of interest (test code = 15718-5) Whether the patient was admitted Unknown to intensive care unit (ICU) for condition of interest (test code = 53441-8) Whether patient resides in a Unknown congregate care setting (test code = 40811-7) status (test code = Unknown 92111-5) Date and time of symptom onset Unknown (test code = 79683-1) [facility] [id number] 12:33:19 Test Item Value Reference Range Interpretation Comments POC-GLUCOSE METER 257 mg/dL 70-110 H : TESTED A T [facility] [address] (BEAKER) (test code [address], = 1538) [place] [address] 384: Hemodialysis Technician/Techni paris ID = [id number] for Eloy Mitchell chucho POCT-GLUCOSE [id number] 06:24:48 Test Item Value Reference Range Interpretation Comments POC-GLUCOSE METER 237 mg/dL 70-110 H : TESTED A T [facility] [address] (BEAKER) (test code [address], = 1538) [place] [address] 384: Hemodialysis Technician/Techni paris ID = [id number] for Stuart hines Daisy POCT-GLUCOSE [id number] 00:03:35 Test Item Value Reference Range Interpretation Comments POC-GLUCOSE METER 364 mg/dL 70-110 H : TESTED A T [facility] [address] (BEAKER) (test code [address], = 1538) [place] [address] 384: Hemodialysis Technician/Techni paris ID = [id number] for Hayde griffinashDeisyMargaret POCT-GLUCOSE [id number] 20:55:20 Test Item Value Reference Range Interpretation Comments POC-GLUCOSE METER 262 mg/dL 70-110 H : TESTED A T [facility] [address] (BEAKER) (test code [address], = 1538) [place] [address] 384: Hemodialysis Technician/Techni paris ID = [id number] for Daisy Magdaleno URINALYSIS W/ [id number] 17:39:34 Test Item Value Reference Range Interpretation Comments COLOR (BEAKER) (test code = 470) Yellow CLARITY (BEAKER) (test code = 469) Clear SPECIFIC GRAVITY UA (BEAKER) (test 1.020 1.001-1.035 code = 468) PH UA (BEAKER) (test code = 467) 7.0 5.0-8.0 PROTEIN UA (BEAKER) (test code = Negative Negative 464) GLUCOSE UA (BEAKER) (test code = >500 mg/dL Negative A 365) KETONES UA (BEAKER) (test code = Negative Negative 371) BILIRUBIN UA (BEAKER) (test code = Negative Negative 462) BLOOD UA (BEAKER) (test code = Small Negative A 461) NITRITE UA (BEAKER) (test code = Negative Negative 465) LEUKOCYTE ESTERASE UA (BEAKER) Negative Negative (test code = 466) UROBILINOGEN UA (BEAKER) (test < mg/dL 0.2-1.0 code = 463) RBC UA (BEAKER) (test code = 519) 1 /HPF WBC UA (BEAKER) (test code = 520) 4 /HPF MUCUS (BEAKER) (test code = 1574) Rare SQUAMOUS EPITHELIAL (BEAKER) (test < /HPF code = 516) SOURCE(BEAKER) (test code = 2795) Hemodialysis Technician ID - [auto]Hemodialysis Technician ID - [auto]POCT-GLUCOSE [id number] 17:34:54 Test Item Value Reference Range Interpretation Comments POC-GLUCOSE METER 217 mg/dL 70-110 H : TESTED A T [facility] [address] (BEAKER) (test code [address], = 1538) [place] [address] 384: Hemodialysis Technician/Techni paris ID = [id number] for Elsa Shen POCT-GLUCOSE [id number] 11:36:04 Test Item Value Reference Range Interpretation Comments POC-GLUCOSE METER 211 mg/dL 70-110 H : TESTED A T [facility] [address] (BEAKER) (test code [facility] [address] THE, = 1538) [place] [address] 384: Hemodialysis Technician/Techni paris ID = [id number] for Elsa Shen POCT-GLUCOSE [id number] 06:19:34 Test Item Value Reference Range Interpretation Comments POC-GLUCOSE METER 231 mg/dL 70-110 H : TESTED A T [facility] [address] (BEAKER) (test code [facility], = 1538) [place] [address] 384: Hemodialysis Technician/Techni paris ID = [id number] for Lucinda Byrd TROPONIN [id number] 23:58:39 Test Item Value Reference Range Interpretation Comments TROPONIN I (BEAKER) (test code = 397) < ng/mL 0.00-0.15 Troponin I (TnI) levels must be interpreted in the context of the presenting symptoms and the clinical findings. Elevated TnI levels indicate myocardial damage, but are not specific for ischemic heart disease. Elevated TnI levels are seen in patients with other cardiac conditions (including myocarditis and congestive heart failure), and slight TnI elevations occur in patients with other conditions, including sepsis, renal failure, acidosis, acute neurological disease, and persistent tachyarrhythmia.Hemodialysis Technician ID - [id number] 19:29:56 Test Item Value Reference Range Interpretation Comments TROPONIN I (BEAKER) (test code = 397) < ng/mL 0.00-0.15 Troponin I (TnI) levels must be interpreted in the context of the presenting symptoms and the clinical findings. Elevated TnI levels indicate myocardial damage, but are not specific for ischemic heart disease. Elevated TnI levels are seen in patients with other cardiac conditions (including myocarditis and congestive heart failure), and slight TnI elevations occur in patients with other conditions, including sepsis, renal failure, acidosis, acute neurological disease, and persistent tachyarrhythmia.Hemodialysis Technician ID - [id number] PANEL 2022-01-07 19:01:28 Test Item Value Reference Range Interpretation Comments TRIGLYCERIDES (BEAKER) 573 mg/dL Speci men slightly (test code = 540) hemolyzed CHOLESTEROL (BEAKER) 172 mg/dL Specime n slightly (test code = 631) hemolyzed HDL CHOLESTEROL (BEAKER) 37 mg/dL (test code = 976) Calculated LDL not valid if triglyceride >400 mg/dLTriglyceride Reference Range: Low Risk <150Borderline 150-199 High Risk 200-499 Very High Risk >=500Cholesterol Reference Range: Low Risk <200 Borderline 200-239 High Risk >240HDL Cholesterol Reference Range: Low Risk >=60 High Risk<40LDL Cholesterol Reference Range: Optimal <100 Near Optimal 100-129 Borderline 130-159 High 160-189 Very High >=190 Hemodialysis Technician ID - [id number] METER 2022-01-07 18:47:04 Test Item Value Reference Range Interpretation Comments POC-GLUCOSE METER 265 mg/dL 70-110 H : TESTED A T [facility] [address] (Vayusa) (test code [facility] [address] THE, = 1538) [facility] 77 384: Hemodialysis Technician/Techni paris ID = [id number] for G Vanessa callahan HEMOGLOBIN [id number] 17:49:34 Test Item Value Reference Range Interpretation Comments HEMOGLOBIN A1C (Advanced Cyclone SystemsAKER) (test code = 9.7 % 4.3-6.1 H 368) Hemodialysis Technician ID - [id number] ([facility])2022-01-07 16:22:04 Test Item Value Reference Range Interpretation Comments SARS-COV2/RT-PCR Negative Negative The SARS-Co V-2 target (test code = nucleic acids a re not 5506547) detected in thi s specimen. Negative result s do not preclude SARS-C oV-2 infection and s hould not be used as the lele e basis for patient managem ent decisions. Nega tive results must be combine d with clinical observ ations, patient history , and epidemiological information. A false negativ e result may occur if a spec imen is improperly irish ected, transported or handled. This SARS CoV-2 test is a rapid, real-time RT-PC R test intended for th e qualitative detection of nu cleic acid from SARS-CoV-2 in a nasopharyngeal swab specimen collected from individuals suspected of CO VID-19 by their healthcar e provider. This test has been authorized by FDA under an EUA for use by authorized laboratories. This test is only authorized for the duration of the declaration that circumstances exist justifying the authorization of emergency use of in vitro diagnostic tests for detection and/or diagnosis of COVID-19 under Section 564(b)(1) of the Federal Food, Drug and Cosmetic Act, 21 U.S.C. 360bbb-3(b)(1), unless the authorization is terminated or revoked sooner. Fact Sheet for Healthcare Providers: https://www.Decisy[employer] m/Documents/Xpert%20Xpress%20SARS%20CoV-2/Fact%20Sheets/302-3802%40PTXL-YDG-0%20 HEALTHCARE%20PROVIDERS%20FACT%20SHEET.pdf Fact Sheet for Healthcare Patients: https://www.[employer] Machine/Documents/Xpert%20Xp ress%20SARS%20CoV-2/Fact%20Sheets/302-3801%09EMPL-JPT-1%20PATIENT%20FACT%20SHEET .pdfRAD, CHEST, 1 VIEW, NON [id number] 15:38:00Reason for exam:->CHEST PAINShould this be performed at the bedside?->Yes [facility] 1975 Sex: MFINAL REPORT AP view of the chest dated 01/07/2022 COMPARISON: October 16, 2020 CLINICAL INFORMATION: CHEST PAIN Comment: Heart is normal in size. Pulmonary vasculature is unremarkable. Lungs are clear. No pulmonary infiltrate or pleural effusion is present. Impression: No active cardiopulmonary disease or interval change. Signed: Brianna Childers Verified Date/Time: 01/07/2022 15:38:05 B- TYPE NATRIURETIC FACTOR (BNP)2022-01-07 15:34:35 Test Item Value Reference Range Interpretation Comments B-TYPE NATRIURETIC PEPTIDE (BEAKER) < pg/mL 0-100 (test code = 700) Hemodialysis Technician ID - [id number] 15:33:57 Test Item Value Reference Range Interpretation Comments TROPONIN I (BEAKER) (test code = 397) < ng/mL 0.00-0.15 Troponin I (TnI) levels must be interpreted in the context of the presenting symptoms and the clinical findings. Elevated TnI levels indicate myocardial damage, but are not specific for ischemic heart disease. Elevated TnI levels are seen in patients with other cardiac conditions (including myocarditis and congestive heart failure), and slight TnI elevations occur in patients with other conditions, including sepsis, renal failure, acidosis, acute neurological disease, and persistent tachyarrhythmia.Hemodialysis Technician ID - [id number] METABOLIC [id number] 15:28:16 Test Item Value Reference Range Interpretation Comments TOTAL PROTEIN 7.6 gm/dL 6.0-8.5 Specimen sligh tly (BEAKER) (test code = hemoly zed 770) ALBUMIN (BEAKER) 4.6 g/dL 3.5-5.0 Specimen sl ightly (test code = 1145) hemolyzed ALKALINE PHOSPHATASE 79 U/L 30-115 (BEAKER) (test code = 346) BILIRUBIN TOTAL 0.3 mg/dL 0.1-1.3 Specimen sli ghtly (BEAKER) (test code = hemoly zed 377) SODIUM (BEAKER) (test 138 meq/L 135-148 code = 381) POTASSIUM (BEAKER) 4.5 meq/L 3.5-5.5 Specimen slightly (test code = 379) hemolyzed CHLORIDE (BEAKER) 104 meq/L 98-106 (test code = 382) CO2 (BEAKER) (test 21 meq/L 20-31 code = 355) BLOOD UREA NITROGEN 15 mg/dL 10-26 (BEAKER) (test code = 354) CREATININE (BEAKER) 1.12 mg/dL 0.50-1.20 Specimen slightly (test code = 358) hemolyzed GLUCOSE RANDOM 267 mg/dL 70-110 H (BEAKER) (test code = 652) CALCIUM (BEAKER) 9.6 mg/dL 8.5-10.5 (test code = 697) AST (SGOT) (BEAKER) 24 U/L 5-40 Specimen slightly (test code = 353) hemolyzed ALT (SGPT) (BEAKER) 31 U/L 6-50 Specimen slightly (test code = 347) hemolyzed EGFR (BEAKER) (test 70 mL/min/1.73 ESTIMA DANIA GFR IS code = 1092) sq m NOT ACCURATE CREATININE CLEARANCE IN PREDICTING GLOMERULAR FILTRATION RATE . ESTIMATED GFR I S NOT APPLICABLE FOR DIALYSIS PATIEN TS. Hemodialysis Technician ID - [id number] 15:28:16 Test Item Value Reference Range Interpretation Comments LIPASE (BEAKER) (test code = 749) 28 U/L 8-78 Hemodialysis Technician ID - [id number] W/PLT COUNT & AUTO [id number] 15:12:28 Test Item Value Reference Range Interpretation Comments WHITE BLOOD CELL COUNT (BEAKER) 8.6 K/ L 4.0-10.0 (test code = 775) RED BLOOD CELL COUNT (BEAKER) 5.34 M/ L 4.20-5.80 (test code = 761) HEMOGLOBIN (BEAKER) (test code = 14.5 GM/DL 13.0-16.8 410) HEMATOCRIT (BEAKER) (test code = 42.9 % 36.0-50.0 411) MEAN CORPUSCULAR VOLUME (BEAKER) 80.3 fL 82.0-99.0 L (test code = 753) MEAN CORPUSCULAR HEMOGLOBIN 27.2 pg 27.0-33.0 (BEAKER) (test code = 751) MEAN CORPUSCULAR HEMOGLOBIN CONC 33.8 GM/DL 32.0-36.0 (BEAKER) (test code = 752) RED CELL DISTRIBUTION WIDTH 12.2 % 12.0-15.0 (BEAKER) (test code = 412) PLATELET COUNT (BEAKER) (test 244 K/CU MM 150-430 code = 756) MEAN PLATELET VOLUME (BEAKER) 10.8 fL 6.0-11.5 (test code = 754) NUCLEATED RED BLOOD CELLS 0 /100 WBC 0-0 (BEAKER) (test code = 413) NEUTROPHILS RELATIVE PERCENT 59 % (BEAKER) (test code = 429) LYMPHOCYTES RELATIVE PERCENT 28 % (BEAKER) (test code = 430) MONOCYTES RELATIVE PERCENT 7 % (BEAKER) (test code = 431) EOSINOPHILS RELATIVE PERCENT 3 % (BEAKER) (test code = 432) BASOPHILS RELATIVE PERCENT 1 % (BEAKER) (test code = 437) NEUTROPHILS ABSOLUTE COUNT 5.07 K/ L 1.80-8.00 (BEAKER) (test code = 670) LYMPHOCYTES ABSOLUTE COUNT 2.44 K/ L 1.48-4.50 (BEAKER) (test code = 414) MONOCYTES ABSOLUTE COUNT (BEAKER) 0.57 K/ L 0.00-1.30 (test code = 415) EOSINOPHILS ABSOLUTE COUNT 0.27 K/ L 0.00-0.50 (BEAKER) (test code = 416) BASOPHILS ABSOLUTE COUNT (BEAKER) 0.11 K/ L 0.00-0.20 (test code = 417) IMMATURE GRANULOCYTES-RELATIVE 2 % 0-0 H PERCENT (BEAKER) (test code = 2801) POCT-GLUCOSE [id number] 16:03:00 Test Item Value Reference Range Interpretation Comments POC-GLUCOSE METER 162 mg/dL 70-110 H : Notified RN/MD: TESTED (BEAKER) (test code AT [facility] [address] [facility] = 1538) [facility] [address]: Hemodialysis Technician/Techni paris ID = [id number] for M acis, Denise MYOCARD IMAGING, MULTI, [id number] 09:49:00Unlisted Reason for Exam - Click Yes and Enter Reason Below->No [facility] : 1975 Sex: MFINAL REPORT PROCEDURE: Rest/Stress MYOCARDIAL PERFUSION SPECT with treadmill\\XA9\\ CPT CODE: 47249 INDICATION: Chest pain PROTOCOL: 10.8 mCi of Tc- 99m sestamibi was injected iv at rest, and SPECT (tomographic) images were obtained. Also, 33.0 mCi of Tc-99m sestamibi was injected iv approximately one minute prior to peak exercise, and gated SPECT images were obtained. PRELIMINARY STRESS TEST DATA FROM NONINVASIVE CARDIOLOGY: The patient exercised for 6 minutes 58 seconds using the Felice treadmill protocol. Heart rate was 68 beats/min at rest; peak heart rate was 162 beats/min (93% of MPHR). Peak BP was 146/93 mmHg. Exercise was stopped for fatigue. The patient experienced non-limiting chest pain; treatment was not required. Preliminary ECG evaluation revealed no ischemic changes with stress. (Final ECG interpretation and other stress and monitoring data are reported separately byCardiology.) IMAGING FINDINGS: Study quality is good. Images obtained after rest and stress injection s show mildly decreased tracer uptake in the inferior and lateral LV segments at stress that improveat rest. LV and RV volumes appear normal. Gated images obtained at rest after stress injection show normal LV wall motion and thickening. QGS LVEF is 57%. IMPRESSION: 1. Abnormal study. 2. Adequate exercise stress. 3. Abnormal myocardial perfusion suggestive of inferior and lateral ischemia. 4. Normalresting LV function. Signed: Corina Root MDReport Verified Date/Time: 10/17/2020 09:49:13 ReadingLocation: [facility] Card[facility] Reading Room -GLUCOSE [id number] 15:10:00 Test Item Value Reference Range Interpretation Comments POC-GLUCOSE METER 223 mg/dL 70-110 H : TESTED A T [facility] 6720 ([place]) (test code = [place], 1538) [address]: Hemodialysis Technician/Techni paris ID = [id number] for CHANDRAKANT HERNANDEZ POCT-GLUCOSE [id number] 15:06:00 Test Item Value Reference Range Interpretation Comments POC-GLUCOSE METER 165 mg/dL 70-110 H : TESTED A T [facility] 67[address] (BEAKER) (test code = [facility], 1538) [address]: Hemodialysis Technician/Techni paris ID = [id number] for Hortencia Young POCT-GLUCOSE [id number] 14:39:00 Test Item Value Reference Range Interpretation Comments POC-GLUCOSE METER 151 mg/dL 70-110 H : TESTED A T [facility] 6720 (BEAKER) (test code = [facility], 1538) [address]: Hemodialysis Technician/Techni paris ID = [id number] for Grace Sagastume POCT-GLUCOSE [id number] 14:33:00 Test Item Value Reference Range Interpretation Comments POC-GLUCOSE METER 144 mg/dL 70-110 H : TESTED A T [facility] 6720 (BEAKER) (test code = [facility], 1538) [address]: Hemodialysis Technician/Techni paris ID = [id number] for CO RTEZ, DELANEY POCT-GLUCOSE [id number] 13:54:00 Test Item Value Reference Range Interpretation Comments POC-GLUCOSE METER 179 mg/dL 70-110 H : TESTED A T [facility] 6720 (BEAKER) (test code = [facility], 1538) [address]: Hemodialysis Technician/Techni paris ID = [id number] for CO RTEZ, DELANEY BASIC METABOLIC [id number] 05:06:00 Test Item Value Reference Range Interpretation Comments SODIUM (BEAKER) 138 meq/L 136-145 (test code = 381) POTASSIUM (BEAKER) 4.0 meq/L 3.5-5.1 (test code = 379) CHLORIDE (BEAKER) 105 meq/L 98-107 (test code = 382) CO2 (BEAKER) (test 25 meq/L 22-29 code = 355) BLOOD UREA NITROGEN 11 mg/dL 7-21 (BEAKER) (test code = 354) CREATININE (BEAKER) 0.93 mg/dL 0.57-1.25 (test code = 358) GLUCOSE RANDOM 160 mg/dL 70-105 H (BEAKER) (test code = 652) CALCIUM (BEAKER) 9.0 mg/dL 8.4-10.2 (test code = 697) EGFR (BEAKER) (test 88 mL/min/1.73 ESTIMA DANIA GFR IS code = 1092) sq m NOT ACCURATE CREATININE CLEARANCE IN PREDICTING GLOMERULAR FILTRATION RATE . ESTIMATED GFR I S NOT APPLICABLE FOR DIALYSIS PATIEN TS. PET, CARDIAC PERFUSION MULTIPLE STUDIES, REST AND [id number] 15:54:00 Reason for exam:->CHEST PAINReason for exam:->SHORTNESS OF BREATHFINAL REPORT PROCEDURE: MYOCARDIAL PERFUSION PET IMAGING (Rest/Stress)CPT CODE:00946 INDICATION: Evaluate acute chest pain/discomfort CARDIOVASCULAR PROFILE:Symptoms: Chest pain, dyspneaCAD History: NoneRisk Factors: Diabetes, hypertension, obesity, hyperlipidemiaBMI: 37Medications: Aspirin, carvedilol, TriCor, Benicar STRESS PROTOCOL:Pharmacologic stress was achieved with a 10-second intravenous infusion of regadenoson 0.4 mg. IMAGING PROTOCOL:Limited low-dose CT imaging was performed for attenuation correction. 39.5 mCi of Rb-82 chloride was injected intravenously at rest, and PET images were obtained. Then, 39.4 mCi of Rb-82 chloride was injected intravenously at peak stress, and PET images were obtained. REST FINDINGS:HR: 67 /minBP: 131/84 mmHgPrelim. EKG: Normal sinus rhythm.Perfusion: Normal.Wall Motion: Normal (LVEF 55%).LV Volume: Normal.RV Volume: Normal. STRESS FINDINGS:HR: 103 /min (50% of MPHR)BP: 113/66 mmHgPrelim. EKG: No ischemic changes.Symptoms: Chest pain/ discomfort, flushing (treatment not required).Perfusion: Normal.Wall Motion: Normal (LVEF 64%).LV Volume: Unchanged from rest. IMPRESSION:1. Normal study.2. Normal myocardial perfusion. 3. Normal global LV function, which does not deteriorate with stress.4. Normal extracardiac tracer distribution..5. There is no prior study for comparison. Signed: Ángel See MDReport Verified Date/Time: 08/03/201915:54:02 Reading Location: [address] Reading Room POCT-GLUCOSE [id number] 12:08:00 Test Item Value Reference Range Interpretation Comments POC-GLUCOSE METER 129 mg/dL 70-110 H : TESTED A T [facility] 6720 (BEAKER) (test code = [place] [facility], 1538) [address]: Hemodialysis Technician/Techni paris ID = [id number] for Hortencia Young HEMOGLOBIN [id number] 07:29:00 Test Item Value Reference Range Interpretation Comments HEMOGLOBIN A1C (BEAKER) (test code = 7.6 % 4.3-6.1 H 368) TROPONIN [id number] 04:23:00 Test Item Value Reference Range Interpretation Comments TROPONIN I (BEAKER) (test code = 397) < ng/mL 0.00-0.03 Troponin I (TnI) levels must be interpreted in the context of the presenting symptoms and the clinical findings. Elevated TnI levels indicate myocardial damage, but are not specific for ischemic heart disease. Elevated TnI levels are seen in patients with other cardiac conditions (including myocarditis and congestive heart failure), and slight TnI elevations occur in patients with other conditions, including sepsis, renal failure, acidosis, acute neurological disease, and persistent tachyarrhythmia.BASIC METABOLIC [id number] 04:18:00 Test Item Value Reference Range Interpretation Comments SODIUM (BEAKER) 135 meq/L 136-145 L (test code = 381) POTASSIUM (BEAKER) 4.0 meq/L 3.5-5.1 Specimen slightly (test code = 379) hemolyzed CHLORIDE (BEAKER) 104 meq/L 98-107 (test code = 382) CO2 (BEAKER) (test 23 meq/L 22-29 code = 355) BLOOD UREA NITROGEN 13 mg/dL 7-21 (BEAKER) (test code = 354) CREATININE (BEAKER) 1.04 mg/dL 0.57-1.25 Specimen slightly (test code = 358) hemolyzed GLUCOSE RANDOM 167 mg/dL 70-105 H (BEAKER) (test code = 652) CALCIUM (BEAKER) 8.9 mg/dL 8.4-10.2 (test code = 697) EGFR (BEAKER) (test 77 mL/min/1.73 ESTIMA DANIA GFR IS code = 1092) sq m NOT ACCURATE CREATININE CLEARANCE IN PREDICTING GLOMERULAR FILTRATION RATE . ESTIMATED GFR I S NOT APPLICABLE FOR DIALYSIS PATIEN TS. LIPID [id number] 04:18:00 Test Item Value Reference Range Interpretation Comments TRIGLYCERIDES (BEAKER) 514 mg/dL Speci men slightly (test code = 540) hemolyzed CHOLESTEROL (BEAKER) 224 mg/dL Specime n slightly (test code = 631) hemolyzed HDL CHOLESTEROL (BEAKER) 27 mg/dL (test code = 976) Calculated LDL not valid if triglyceride >400 mg/dLTriglyceride Reference Range: Low Risk <150 Borderline 150-199 High Risk 200-499 Very High Risk >=500Cholesterol Reference Range: Low Risk <200 Borderline 200-239 High Risk >240HDL Cholesterol Reference Range: Low Risk >=60 High Risk <40LDL Cholesterol Reference Range: Optimal <100 Near Optimal 100-129 Borderline 130-159 [id number] Very High >=190HEPATIC FUNCTION PANEL 2019-08-03 04:18:00 Test Item Value Reference Range Interpretation Comments TOTAL PROTEIN (BEAKER) 6.8 gm/dL 6.0-8.3 Speci men slightly (test code = 770) hemolyzed ALBUMIN (BEAKER) (test 4.1 g/dL 3.5-5.0 Speci men slightly code = 1145) hemolyzed BILIRUBIN TOTAL 0.4 mg/dL 0.2-1.2 Specimen sli ghtly (BEAKER) (test code = hemoly zed 377) BILIRUBIN DIRECT 0.1 mg/dL 0.1-0.5 Specimen sl ightly (BEAKER) (test code = hemoly zed 706) ALKALINE PHOSPHATASE 47 U/L 40-150 (BEAKER) (test code = 346) AST (SGOT) (BEAKER) 19 U/L 5-34 Specimen slightly (test code = 353) hemolyzed ALT (SGPT) (BEAKER) 29 U/L 6-55 Specimen slightly (test code = 347) hemolyzed CBC (HEMOGRAM ONLY)2019-08-03 03:05:00 Test Item Value Reference Range Interpretation Comments WHITE BLOOD CELL COUNT (BEAKER) 7.4 K/ L 3.5-10.5 (test code = 775) RED BLOOD CELL COUNT (BEAKER) 5.02 M/ L 4.63-6.08 (test code = 761) HEMOGLOBIN (BEAKER) (test code = 14.1 GM/DL 13.7-17.5 410) HEMATOCRIT (BEAKER) (test code = 42.4 % 40.1-51.0 411) MEAN CORPUSCULAR VOLUME (BEAKER) 84.5 fL 79.0-92.2 (test code = 753) MEAN CORPUSCULAR HEMOGLOBIN 28.1 pg 25.7-32.2 (BEAKER) (test code = 751) MEAN CORPUSCULAR HEMOGLOBIN CONC 33.3 GM/DL 32.3-36.5 (BEAKER) (test code = 752) RED CELL DISTRIBUTION WIDTH 12.3 % 11.6-14.4 (BEAKER) (test code = 412) PLATELET COUNT (BEAKER) (test 189 K/CU MM 150-450 code = 756) MEAN PLATELET VOLUME (BEAKER) 10.5 fL 9.4-12.4 (test code = 754) NUCLEATED RED BLOOD CELLS 0 /100 WBC 0-0 (BEAKER) (test code = 413) POCT-GLUCOSE [id number] 21:27:00 Test Item Value Reference Range Interpretation Comments POC-GLUCOSE METER 166 mg/dL 70-110 H : TESTED A T [facility] 6720 (AKER) (test code = [place] [facility], 1538) [address]: Hemodialysis Technician/Techni paris ID = [id number] for ORALIA PARRA [id number] 20:47:00 Test Item Value Reference Range Interpretation Comments D-DIMER QUANTITATIVE (BEAKER) < MG/L FEU <0.50 (test code = 671) Intended Use: The D-Dimer Assay can be used to aid in the diagnosis of Deep Vein Thrombosis (DVT) and Pulmonary Embolism Disease (PED).In patients with low pre- test probability, various studies concerning STA Liatest D-dimer test have reported that with a cutoff value of 0.50 MG/L FEU, the Negative Predictive Value (NPV) regarding the exclusion of thrombosis is within 95-100% range. TROPONIN [id number] 20:37:00 Test Item Value Reference Range Interpretation Comments TROPONIN I (BEAKER) (test code = 397) < ng/mL 0.00-0.03 Troponin I (TnI) levels must be interpreted in the context of the presenting symptoms and the clinical findings. Elevated TnI levels indicate myocardial damage, but are not specific for ischemic heart disease. Elevated TnI levels are seen in patients with other cardiac conditions (including myocarditis and congestive heart failure), and slight TnI elevations occur in patients with other conditions, including sepsis, renal failure, acidosis, acute neurological disease, and persistent tachyarrhythmia.B-TYPE NATRIURETIC FACTOR (BNP) 2019-08-02 15:08:00 Test Item Value Reference Range Interpretation Comments B-TYPE NATRIURETIC PEPTIDE (BEAKER) < pg/mL 0-100 (test code = 700) TROPONIN [id number] 15:07:00 Test Item Value Reference Range Interpretation Comments TROPONIN I (BEAKER) (test code = 397) < ng/mL 0.00-0.03 Troponin I (TnI) levels must be interpreted in the context of the presenting symptoms and the clinical findings. Elevated TnI levels indicate myocardial damage, but are not specific for ischemic heart disease. Elevated TnI levels are seen in patients with other cardiac conditions (including myocarditis and congestive heart failure), and slight TnI elevations occur in patients with other conditions, including sepsis, renal failure, acidosis, acute neurological disease, and persistent tachyarrhythmia.BASIC METABOLIC [id number] 15:05:00 Test Item Value Reference Range Interpretation Comments SODIUM (BEAKER) (test 137 meq/L 136-145 code = 381) POTASSIUM (BEAKER) 3.8 meq/L 3.5-5.1 (test code = 379) CHLORIDE (BEAKER) 105 meq/L 98-107 (test code = 382) CO2 (BEAKER) (test 25 meq/L 22-29 code = 355) BLOOD UREA NITROGEN 12 mg/dL 7-21 (BEAKER) (test code = 354) CREATININE (BEAKER) 1.18 mg/dL 0.57-1.25 (test code = 358) GLUCOSE RANDOM 173 mg/dL 70-105 H (BEAKER) (test code = 652) CALCIUM (BEAKER) 9.1 mg/dL 8.4-10.2 (test code = 697) EGFR (BEAKER) (test INSUFFIC IENT CLINICAL code = 1092) DATA TO CALCULA TE ESTIMATED GFR. [id number] 15:01:00 Test Item Value Reference Range Interpretation Comments MAGNESIUM (BEAKER) (test code = 1.8 mg/dL 1.6-2.6 627) PT/[id number] 14:52:00 Test Item Value Reference Range Interpretation Comments PROTIME (BEAKER) (test code = 13.6 seconds 11.9-14.2 759) INR (BEAKER) (test code = 370) 1.1 <=5.9 PARTIAL THROMBOPLASTIN TIME 27.2 seconds 22.5-36.0 (BEAKER) (test code = 760) Effective 02/03/2019: PT Reference Range ChangeNew: 11.9-14.2 Previous: 11.7- 14.7RECOMMENDED COUMADIN/WARFARIN INR THERAPY RANGESSTANDARD DOSE: 2.0-3.0 Includes: PROPHYLAXIS for venous thrombosis, systemic embolization; TREATMENT for venous thrombosis and/or pulmonary embolus.HIGH RISK: Target INR is 2.5-3.5 for patients wiht mechanical heart valves.CBC W/PLT COUNT & AUTO [id number] 14:45:00 Test Item Value Reference Range Interpretation Comments WHITE BLOOD CELL COUNT (BEAKER) 7.5 K/ L 3.5-10.5 (test code = 775) RED BLOOD CELL COUNT (BEAKER) 5.17 M/ L 4.63-6.08 (test code = 761) HEMOGLOBIN (BEAKER) (test code = 14.9 GM/DL 13.7-17.5 410) HEMATOCRIT (BEAKER) (test code = 44.1 % 40.1-51.0 411) MEAN CORPUSCULAR VOLUME (BEAKER) 85.3 fL 79.0-92.2 (test code = 753) MEAN CORPUSCULAR HEMOGLOBIN 28.8 pg 25.7-32.2 (BEAKER) (test code = 751) MEAN CORPUSCULAR HEMOGLOBIN CONC 33.8 GM/DL 32.3-36.5 (BEAKER) (test code = 752) RED CELL DISTRIBUTION WIDTH 12.4 % 11.6-14.4 (BEAKER) (test code = 412) PLATELET COUNT (BEAKER) (test 194 K/CU MM 150-450 code = 756) MEAN PLATELET VOLUME (BEAKER) 10.5 fL 9.4-12.4 (test code = 754) NUCLEATED RED BLOOD CELLS 0 /100 WBC 0-0 (BEAKER) (test code = 413) NEUTROPHILS RELATIVE PERCENT 61 % (BEAKER) (test code = 429) LYMPHOCYTES RELATIVE PERCENT 22 % (BEAKER) (test code = 430) MONOCYTES RELATIVE PERCENT 8 % (BEAKER) (test code = 431) EOSINOPHILS RELATIVE PERCENT 4 % (BEAKER) (test code = 432) BASOPHILS RELATIVE PERCENT 1 % (BEAKER) (test code = 437) NEUTROPHILS ABSOLUTE COUNT 4.58 K/ L 1.78-5.38 (BEAKER) (test code = 670) LYMPHOCYTES ABSOLUTE COUNT 1.67 K/ L 1.32-3.57 (BEAKER) (test code = 414) MONOCYTES ABSOLUTE COUNT (BEAKER) 0.63 K/ L 0.30-0.82 (test code = 415) EOSINOPHILS ABSOLUTE COUNT 0.33 K/ L 0.04-0.54 (BEAKER) (test code = 416) BASOPHILS ABSOLUTE COUNT (BEAKER) 0.10 K/ L 0.01-0.08 H (test code = 417) IMMATURE GRANULOCYTES-RELATIVE 3 % 0-1 H PERCENT (BEAKER) (test code = 2801) RAD, CHEST, 1 VIEW, NON [id number] 14:19:00Reason for exam:->CHEST PAINReason for exam:->SHORTNESS OF BREATHFINAL REPORT INDICATION: CHEST PAINSHORTNESS OF BREATH COMPARISON: None TECHNIQUE: Single frontal view of the chest. FINDINGS: Lungs and pleura: Clear lungs. No effusion.Heart and mediastinum: Normal heart size. Unremarkable mediastinal contours.Osseous structures: No acute abnormality.Other: None. IMPRESSION: No acute intrathoracic abnormality. Signed: Erika Lopez MDReport Verified Date/Time: 08/02/2019 14:19:28 Reading Location: [facility] Radiology Reading Room CT ABDOMEN/PELVIS W/O [id number] 10:41:29EXAM: CT Abdomen and Pelvis WITHOUT contrastINDICATION: [id number]: Flank [id number]: None.TECHNIQUE: Abdomen and pelvis were scanned utilizing a multidetector helicalscanner from the lung base to the pubic symphysis without administration of IVcontrast. Absence of intravenous contrast decreases sensitivity for detection offocal lesions and vascular pathology. Coronal and sagittal refor mations wereobtained. Routine protocol was performed.IV CONTRAST: NoneORAL CONTRAST: WaterCOMPLICATIONS: NoneRADIATION DOSE:Total DLP: 1327 mGy*cmEstimated effective dose: (DLP x 0.015 x size factor) mSvCTDIvol has been reviewed. It is below the limits set by the RadiationProtocol Committee (RPC).FINDINGS:LINES and TUBES: None.LOWER THORAX: Nonspecific 3 mm pleural-based nodule in the right middle lobe onseries 3, image one, no further followup needed.HEPATOBILIARY: No focal hepatic lesions. No biliary ductal dilation.GALLBLADDER: No radio-opaque stones or sludge. No wall thickening.SPLEEN: No splenomegaly.PANCREAS: No focal masses or ductal dilatation.ADRENALS: No adrenal nodulesKIDNEYS/URETERS: No hydronephrosis. 1.6 cm low-attenuation renal cyst in theinferior pole of the right kidney on series 2, image 43. 5 mm calcified stonein the inferior pole of the left kidney, resulting in mild dilatation of theinferior calyx. 5 mm calcified stone in the proximal left ureter, 4.5 cm belowthe ureteropelvic junction results in mild pelviectasis and mild dilatation ofthe left ureter. There is mild fat stranding surrounding the left ureter at thelevel of the stone.GI TRACT: No abnormal distention, wall thickening, or evidence of bowelobstruction. Diffuse diverticulosis of the sigmoid colon withoutdivert iculitis. Appendix is normal.PELVIC ORGANS/BLADDER: Unremarkable.LYMPH NODES: No lymphadenopathy.VESSELS: Unremarkable.PERITONEUM / RETROPERITONEUM: No free air or fluid.BONES: Unremarkable.SOFT TISSUES: Small fat-containing left inguinal hernia.IMPRESSION:Mildly obstructing 5 mm proximal left ureteral and 5 mm inferior left renalcalcified stones.This final report was electronically signed by Dr Brigida Mullen MD04/24/2019 10:35 AMDictated By: YOUNG CLINEADate: 04/24/2019 10:35[facility]IC 2019-04-24 10:20:00 Test Item Value Reference Range Interpretation Comments Color (test code = UCOLR) Yellow Clarity (test code = Sl Cloudy UCLAR) Glucose (test code = NEGATIVE NEGATIVE N UGLUC) Bilirubin (test code = NEGATIVE NEGATIVE N UBILI) Ketones (test code = NEGATIVE NEGATIVE N UKET) Specific [place] (test >=1.030 1.005-1.030 A code = USPGR) Blood (test code = UBLD) Large NEGATIVE A PH (test code = UPH) 5.5 4.5-8.0 A Protein (test code = 30 NEGATIVE A UPROT) Urobilinogen (test code = 0.2 >0.2 N U UROB) Nitrite (test code = NEGATIVE NEGATIVE N UNITR) Leukocyte Esterase (test NEGATIVE NEGATIVE N code = ULEUK) WBC (test code = WBCUR) 2-4 0-5 A RBC (test code = RBCUR) 40-50 0-5 A Epithial Cells (test code 0-2 0-10 A = U EPI) Mucous (test code = UMUC) None Seen None Seen N Bacteria (test code = 2+ None Seen,Trace A UBACT) Crystals Urine (test code Trace Calcium None Seen A = URCRYS) Oxalate Urine Misc (test code = Rare Yeast None Seen A UR MISC) [facility] [id number] 02:27:00 Test Item Value Reference Range Interpretation Comments CK MB Index (test 1.1 See_Comment [Automate d message] The code = CK MB Index) system [facility] generated this result transmit dania reference range : <=2.5. The reference range was not used to interpr et this result as noel l/abnormal. [facility] [id number] 02:27:00 Test Item Value Reference Range Interpretation Comments CK MB (test code = CK MB) 2.1 0.5-3.6 [facility] [id number] 02:27:00 Test Item Value Reference Range Interpretation Comments Troponin-I (test code no gt See_Comment [Auto mated message] The = Troponin-I) system which g enerated this result transmit dania reference range : <=0.40. The reference r espinoza was not used to interpr et this result as noel l/abnormal. [facility] [id number] 02:27:00 Test Item Value Reference Range Interpretation Comments Troponin-T (test code no gt See_Comment [Auto mated message] The = Troponin-T) system which g enerated this result transmit dania reference range : <=0.100. The reference r espinoza was not used to interpr et this result as noel l/abnormal. [facility] [employer] [id number] 02:27:00 Test Item Value Reference Range Interpretation Comments Total CK (test code = Total CK) 190 12-191 [facility] [id number] 21:40:00 Test Item Value Reference Range Interpretation Comments Troponin-T (test code no gt See_Comment [Auto mated message] The = Troponin-T) system which g enerated this result transmit dania reference range : <=0.100. The reference r espinoza was not used to interpr et this result as noel l/abnormal. [facility] [employer] AYWJCYH0553-84-64 21:40:00 Test Item Value Reference Range Interpretation Comments Total CK (test code = Total CK) 224 12-191 [facility]2017-06-29 21:40:00 Test Item Value Reference Range Interpretation Comments Troponin-I (test code no gt See_Comment [Auto mated message] The = Troponin-I) system which g enerated this result transmit dania reference range : <=0.40. The reference r espinoza was not used to interpr et this result as noel l/abnormal. [facility] [employer]2017-06-29 21:40:00 Test Item Value Reference Range Interpretation Comments CK-MB INDEX (test 0.8 See_Comment [Automate d message] The code = CK-MB INDEX) system w [employer] generated this result transmit dania reference range : <=2.5. The reference range was not used to interpr et this result as noel l/abnormal. [facility] [employer] YLGVVNU1839-82-99 21:40:00 Test Item Value Reference Range Interpretation Comments CK MB (test code = CK MB) 1.8 0.5-3.6 [facility] [employer] [id number] 17:34:00 Test Item Value Reference Range Interpretation Comments CK MB (test code = CK MB) 1.2 0.5-3.6 [facility] [employer] YOYRVWV0747-06-48 17:34:00 Test Item Value Reference Range Interpretation Comments CK-MB INDEX (test 0.6 See_Comment [Automate d message] The code = CK-MB INDEX) system w [employer] generated this result transmit dania reference range : <=2.5. The reference range was not used to interpr et this result as noel l/abnormal. [facility] QUJJKBE9731-16-89 17:34:00 Test Item Value Reference Range Interpretation Comments Total CK (test code = Total CK) 201 12-191 [facility]CAR[facility] DJLDQUQ8509-86-70 17:34:00 Test Item Value Reference Range Interpretation Comments Troponin-I (test code no gt See_Comment [Auto mated message] The = Troponin-I) system which g enerated this result transmit dania reference range : <=0.40. The reference r espinoza was not used to interpr et this result as noel l/abnormal. [facility] BudaLgcoalyXRJKPF2805-90-87 17:34:00 Test Item Value Reference Range Interpretation Comments LDL (Calculated) (test code = LDL 99 (Calculated)) [facility]villeEpiawnsZUWJOF5248-30-57 17:34:00 Test Item Value Reference Range Interpretation Comments VLDL (test code = VLDL) 26 [facility] BudaPhlghclKXSQGJ2352-93-03 17:34:00 Test Item Value Reference Range Interpretation Comments CHD Risk (test code = CHD Risk) 4.29 4.00-7.30 [facility] BudaTvwklopPIKRXW8840-34-09 17:34:00 Test Item Value Reference Range Interpretation Comments HDL (test code = HDL) 38 [facility] BudaEjjcajvNUZLTY9529-22-63 17:34:00 Test Item Value Reference Range Interpretation Comments Chol (test code = Chol) 163 [facility] BudaJuygqhhFTAOFL5806-75-84 17:34:00 Test Item Value Reference Range Interpretation Comments Trig (test code = Trig) 132 [facility] BudaBqtfsapLEKSNALKFV8997-19-87 13:54:00 Test Item Value Reference Range Interpretation Comments CDC HIV 4th GEN (test Negative *NA*(03/06/17 code = CDC HIV 4th 8:54 AM) GEN) [facility] BudaCmpnvrwMJKVAGYCCB2392-97-62 13:27:00 Test Item Value Reference Range Interpretation Comments MPV (test code = MPV) 9.5 7.4-10.4 [facility] BudaEjaeykzQUPXLDAEEH4656-55-29 13:27:00 Test Item Value Reference Range Interpretation Comments Platelet (test code = Platelet) 194 133-450 [facility] [place]villeCxkeqpcZVBIULCVOR7968-32-80 13:27:00 Test Item Value Reference Range Interpretation Comments RBC (test code = RBC) 5.23 4.70-6.10 [facility] CenterHqvvhnwPTTZUBKDXT8719-14-48 13:27:00 Test Item Value Reference Range Interpretation Comments WBC (test code = WBC) 7.0 3.7-10.4 [facility] CenterLtesxmpEYUFRQPBQH9743-72-25 13:27:00 Test Item Value Reference Range Interpretation Comments MCHC (test code = MCHC) 33.4 32.0-36.0 [facility] CenterBwuozckMSSTRCYRBY7844-37-72 13:27:00 Test Item Value Reference Range Interpretation Comments MCH (test code = MCH) 27.8 pg 27.0-31.0 [facility] CenterIqhntewLWHMHIEOKU6609-22-47 13:27:00 Test Item Value Reference Range Interpretation Comments MCV (test code = MCV) 83.2 80.0-94.0 [facility] CenterKqvskoeUBGRBJFYAI9736-10-78 13:27:00 Test Item Value Reference Range Interpretation Comments Eosinophils (test code = 4.7 See_Comment [A utomated message] The Eosinophils) system which ge nerated this result tra nsmitted reference range : <=4.0. The reference r espinoza was not used to int erpret this result as normal/abnormal . [facility] CenterFwtyssaEYGETOHUEN0356-60-21 13:27:00 Test Item Value Reference Range Interpretation Comments Lymphocytes (test code = Lymphocytes) 27.4 20.0-40.0 [facility] CenterGcxqmrpMXCLLYJEGI4498-53-07 13:27:00 Test Item Value Reference Range Interpretation Comments Monocytes (test code = Monocytes) 6.7 2.0-12.0 [facility] CenterJkftuyhTPPBJAWZKQ7866-16-33 13:27:00 Test Item Value Reference Range Interpretation Comments Segs (test code = Segs) 60.5 45.0-75.0 [facility] CenterYbbjncaBUEBGOZKOF1892-29-47 13:27:00 Test Item Value Reference Range Interpretation Comments Eosinophils # (test code 0.3 See_Comment [A utomated message] The = Eosinophils #) system whic h generated this result tra nsmitted reference range : <=0.5. The reference r espinoza was not used to int erpret this result as normal/abnormal . [facility] CenterXrkqcuoZZQMAKYJKO0004-08-05 13:27:00 Test Item Value Reference Range Interpretation Comments Lymphocytes # (test code = Lymphocytes 1.9 1.0-5.5 #) [facility] CenterPiyrbgmUETRMIQXTH7100-50-36 13:27:00 Test Item Value Reference Range Interpretation Comments Monocytes # (test code 0.5 See_Comment [Aut omated message] The = Monocytes #) system which generated this result tra nsmitted reference range : <=0.8. The reference r espinoza was not used to int erpret this result as normal/abnormal . [facility] CenterKrgbeaaSYDFCGZNYQ2938-99-75 13:27:00 Test Item Value Reference Range Interpretation Comments Basophils (test code = 0.7 See_Comment [Aut omated message] The Basophils) system which ge nerated this result tra nsmitted reference range : <=1.0. The reference r espinoza was not used to int erpret this result as normal/abnormal . [facility] CenterDkxatsiWMBIZXUIGX6504-12-69 13:27:00 Test Item Value Reference Range Interpretation Comments Segs-Bands # (test code = Segs-Bands #) 4.2 1.5-8.1 [facility]IlvsgouXULHPPXIEFZN6783-07-90 13:27:00 Test Item Value Reference Range Interpretation Comments AGAP (test code = AGAP) 11.0 10.0-20.0 [facility] HospitalZdekvryQPZMFWJCHNPD2000-36-86 13:27:00 Test Item Value Reference Range Interpretation Comments B/C Ratio (test code = B/C Ratio) 15 6-25 [facility] HospitalIkjkziiVGLSEYZHRYJF3113-87-59 13:27:00 Test Item Value Reference Range Interpretation Comments Globulin (test code = Globulin) 3.3 2.7-4.2 [facility] HospitalPxthrigRYLTZDNBGWCE8216-79-90 13:27:00 Test Item Value Reference Range Interpretation Comments A/G Ratio (test code = A/G Ratio) 1.2 0.7-1.6 [facility] HospitalHzhoqkcZKPYZBAFWSRQ7671-93-48 13:27:00 Test Item Value Reference Range Interpretation Comments eGFR (test code = eGFR) 89 [facility] HospitalTnkubfkQLWIKGSWFQPB4970-59-51 13:27:00 Test Item Value Reference Range Interpretation Comments Potassium Lvl (test code = Potassium 4.0 3.5-5.1 Lvl) [facility] HospitalVshigduJGLZQMBNIUKA6213-07-96 13:27:00 Test Item Value Reference Range Interpretation Comments CO2 (test code = CO2) 24 24-32 [facility] HospitalHibnwbmLVRUAZUTQHMJ7831-40-04 13:27:00 Test Item Value Reference Range Interpretation Comments Chloride Lvl (test code = Chloride Lvl) 106 95-109 [facility] HospitalNsinwkeSPNPKCHZRARI2780-51-18 13:27:00 Test Item Value Reference Range Interpretation Comments Calcium Lvl (test code = Calcium Lvl) 8.9 8.5-10.5 [facility] HospitalTyxqrezXECHLZFNDOBN8738-75-83 13:27:00 Test Item Value Reference Range Interpretation Comments Glucose Lvl (test code = Glucose Lvl) 192 70-99 [facility] HospitalAsxtaqeYXLKVGKZLXTN6849-86-69 13:27:00 Test Item Value Reference Range Interpretation Comments BUN (test code = BUN) 15 7-22 [facility] HospitalKkvjmhdZUMSDOOUOSPM8034-70-48 13:27:00 Test Item Value Reference Range Interpretation Comments Creatinine Lvl (test code = Creatinine 1.03 0.50-1.40 Lvl) [facility] HospitalYvjgdkuVLCAEHNCIMRR4064-36-38 13:27:00 Test Item Value Reference Range Interpretation Comments Sodium Lvl (test code = Sodium Lvl) 137 135-145 [facility] HospitalDbawjehZPNEOGSTXCYO9551-22-78 13:27:00 Test Item Value Reference Range Interpretation Comments Total Protein (test code = Total 7.2 6.4-8.4 Protein) [facility] HospitalNnxpnvlTHJGTOOFSEME5201-64-47 13:27:00 Test Item Value Reference Range Interpretation Comments Albumin Lvl (test code = Albumin Lvl) 3.9 3.5-5.0 [facility] HospitalCtvxdyqOYXMWBECMRRD0624-64-97 13:27:00 Test Item Value Reference Range Interpretation Comments ALT (test code = ALT) 39 See_Comment [Auto mated message] The system which ge nerated this result transmit dania reference range : <=65. The reference range was not used to interpr et this result as noel l/abnormal. [facility] HospitalVwivmbqDXQZLKLUISKF7045-75-06 13:27:00 Test Item Value Reference Range Interpretation Comments AST (test code = AST) 26 See_Comment [Auto mated message] The system which ge nerated this result transmit dania reference range : <=37. The reference range was not used to interpr et this result as noel l/abnormal. [facility] HospitalJbkhsqhCPYFSMBOCVQT4298-56-20 13:27:00 Test Item Value Reference Range Interpretation Comments Bili Total (test code = Bili Total) 0.2 0.2-1.3 [facility] BudaCvdsamsQOXVEYRRIBJO5009-82-40 13:27:00 Test Item Value Reference Range Interpretation Comments Alk Phos (test code = Alk Phos) 83 39-136 [facility] HospitalTkafoovZHJEXODDPZ2489-02-53 13:27:00 Test Item Value Reference Range Interpretation Comments Hct (test code = Hct) 43.5 42.0-54.0 [facility] HospitalPnbhqawWKSYRVCGHP1372-38-36 13:27:00 Test Item Value Reference Range Interpretation Comments Hgb (test code = Hgb) 14.5 14.0-18.0 [facility] HospitalCuiyeneSJATJUURTH6534-07-22 13:27:00 Test Item Value Reference Range Interpretation Comments RDW (test code = RDW) 12.9 11.5-14.5 [facility] QNRDVUC2879-97-04 08:37:56 Test Item Value Reference Range Interpretation Comments Troponin-I (test code no gt See_Comment [Auto mated message] The = Troponin-I) system which g enerated this result transmit dania reference range : <=0.40. The reference r espinoza was not used to interpr et this result as noel l/abnormal. [facility] QZTECSPXP5604-81-82 01:42:24 Test Item Value Reference Range Interpretation Comments Hgb A1C (test code = Hgb A1C) 5.7 [facility] IDIARLN0485-42-42 01:42:11 Test Item Value Reference Range Interpretation Comments Troponin-I (test code no gt See_Comment [Auto mated message] The = Troponin-I) system which g enerated this result transmit dania reference range : <=0.40. The reference r espinoza was not used to interpr et this result as noel l/abnormal. [facility] BudaPgnazkbXVZLIS6686-56-34 01:42:11 Test Item Value Reference Range Interpretation Comments LDL (Calculated) (test code = LDL 129 (Calculated)) [facility]villeRoweazdXYRVND6257-30-47 01:42:11 Test Item Value Reference Range Interpretation Comments VLDL (test code = VLDL) 46 [facility]villeUrtxwgaYBJIGG0687-72-95 01:42:11 Test Item Value Reference Range Interpretation Comments Chol (test code = Chol) 212 [facility] BudaRfosqzyMIPEPW8921-62-79 01:42:11 Test Item Value Reference Range Interpretation Comments HDL (test code = HDL) 37 [facility] BudaIaaenyeNZXCPM4402-32-47 01:42:11 Test Item Value Reference Range Interpretation Comments Trig (test code = Trig) 231 [facility] BudaHmigtocSCPBLZ9050-14-89 01:42:11 Test Item Value Reference Range Interpretation Comments CHD Risk (test code = CHD Risk) 5.73 4.00-7.30 [facility]villeCARD[facility]AC MVLCBTN1800-89-22 18:54:00 Test Item Value Reference Range Interpretation Comments Troponin-I (test code no gt See_Comment [Auto mated message] The = Troponin-I) system which g enerated this result transmit dania reference range : <=0.40. The reference r espinoza was not used to interpr et this result as noel l/abnormal. [facility]villeCHEM KHLEB0554-47-85 18:54:00 Test Item Value Reference Range Interpretation Comments Phosphorus (test code = Phosphorus) 2.2 2.5-4.5 [facility]villeCHEM WSWPL5491-87-85 18:54:00 Test Item Value Reference Range Interpretation Comments Magnesium Lvl (test code = Magnesium 2.0 1.8-2.4 Lvl) [facility] BudaEgtcizuNQIEVSCBDHDK8701-89-10 18:54:00 Test Item Value Reference Range Interpretation Comments AGAP (test code = AGAP) 10.8 10.0-20.0 [facility] BudaWedkyrzKKCGIJGGCLVG0521-37-80 18:54:00 Test Item Value Reference Range Interpretation Comments eGFR (test code = eGFR) 84 [facility]IizpokhYGVZBOGPDBYI8090-47-31 18:54:00 Test Item Value Reference Range Interpretation Comments Creatinine Lvl (test code = Creatinine 1.1 0.5-1.4 Lvl) [facility] BudaObpyckeIKEYPPTJSLRL2132-32-85 18:54:00 Test Item Value Reference Range Interpretation Comments Sodium Lvl (test code = Sodium Lvl) 140 135-145 [facility]NkwuxxlNJQFQPLLVYSA9006-94-30 18:54:00 Test Item Value Reference Range Interpretation Comments BUN (test code = BUN) 15 7-22 [facility]IacoknfRRADQEFZWSSM3095-55-25 18:54:00 Test Item Value Reference Range Interpretation Comments Glucose Lvl (test code = Glucose Lvl) 151 70-99 [facility] HospitalGefsdigIFJKFCCRFRNO0638-34-67 18:54:00 Test Item Value Reference Range Interpretation Comments Calcium Lvl (test code = Calcium Lvl) 9.4 8.5-10.5 [facility] HospitalYzqgbovZUSWODBBPLMW6455-87-57 18:54:00 Test Item Value Reference Range Interpretation Comments Chloride Lvl (test code = Chloride Lvl) 105 95-109 [facility] HospitalQglizclLXFIDVYGUXVZ8339-45-06 18:54:00 Test Item Value Reference Range Interpretation Comments CO2 (test code = CO2) 28 24-32 [facility] HospitalHlbelqjJDJMDGXJVSOO1264-47-97 18:54:00 Test Item Value Reference Range Interpretation Comments Potassium Lvl (test code = Potassium 3.8 3.5-5.1 Lvl) [facility] CenterJawsybgHULGIAYMAD4184-79-63 18:54:00 Test Item Value Reference Range Interpretation Comments Eosinophils # (test code 0.4 See_Comment [A utomated message] The = Eosinophils #) system whic h generated this result tra nsmitted reference range : <=0.5. The reference r espinoza was not used to int erpret this result as normal/abnormal . [facility] CenterLgoswtuGRQKXITMNV0978-40-55 18:54:00 Test Item Value Reference Range Interpretation Comments Monocytes # (test code 0.4 See_Comment [Aut omated message] The = Monocytes #) system which generated this result tra nsmitted reference range : <=0.8. The reference r espinoza was not used to int erpret this result as normal/abnormal . [facility] CenterHadlkiyPQDFRPFNJH9389-05-15 18:54:00 Test Item Value Reference Range Interpretation Comments Basophils # (test code 0.1 See_Comment [Aut omated message] The = Basophils #) system which generated this result tra nsmitted reference range : <=0.2. The reference r espinoza was not used to int erpret this result as normal/abnormal . [facility] CenterXsjanilNNDNWHGTZG4817-33-89 18:54:00 Test Item Value Reference Range Interpretation Comments Lymphocytes # (test code = Lymphocytes 1.9 1.0-5.5 #) [facility] CenterNntqwldQLGEKUTCVZ0738-25-82 18:54:00 Test Item Value Reference Range Interpretation Comments Segs-Bands # (test code = Segs-Bands #) 4.1 1.5-8.1 [facility] CenterFlaytljJHDXDNDDCX8826-89-93 18:54:00 Test Item Value Reference Range Interpretation Comments Basophils (test code = 1.6 See_Comment [Aut omated message] The Basophils) system which ge nerated this result tra nsmitted reference range : <=1.0. The reference r espinoza was not used to int erpret this result as normal/abnormal . [facility] CenterWtrzdhnFAFPNHGVLC3681-54-56 18:54:00 Test Item Value Reference Range Interpretation Comments Eosinophils (test code = 5.7 See_Comment [A utomated message] The Eosinophils) system which ge nerated this result tra nsmitted reference range : <=4.0. The reference r espinoza was not used to int erpret this result as normal/abnormal . [facility] CenterZozkjvmTDYZAPHGJT6102-44-49 18:54:00 Test Item Value Reference Range Interpretation Comments Segs (test code = Segs) 59.2 45.0-75.0 [facility] CenterTzsptaxCMRDQPRGNX4588-97-08 18:54:00 Test Item Value Reference Range Interpretation Comments Lymphocytes (test code = Lymphocytes) 28.2 20.0-40.0 [facility] CenterGuxghwkUMCEELDHVG6945-96-20 18:54:00 Test Item Value Reference Range Interpretation Comments Monocytes (test code = Monocytes) 5.3 2.0-12.0 [facility] CenterZjyqznhRHZBYTECWP0745-77-06 18:54:00 Test Item Value Reference Range Interpretation Comments MCHC (test code = MCHC) 33.5 32.0-36.0 [facility] CenterPfcqtmoPRUWGZQNHP9151-70-28 18:54:00 Test Item Value Reference Range Interpretation Comments MCH (test code = MCH) 27.7 pg 27.0-31.0 [facility] CenterMefzbsnNQEEUZMDIM0581-73-39 18:54:00 Test Item Value Reference Range Interpretation Comments RBC (test code = RBC) 5.71 4.70-6.10 [facility] CenterCiwqcppLJAEBLBRKR6076-98-06 18:54:00 Test Item Value Reference Range Interpretation Comments WBC (test code = WBC) 6.9 3.7-10.4 [facility] CenterNnpiopkZZNMMRWLNU3602-66-02 18:54:00 Test Item Value Reference Range Interpretation Comments MCV (test code = MCV) 82.6 80.0-94.0 [facility] CenterSnynyeaHBYAGUMVRF1992-47-38 18:54:00 Test Item Value Reference Range Interpretation Comments Hgb (test code = Hgb) 15.8 14.0-18.0 [facility] CenterEcjlkikVFBGNQBCXT4161-19-01 18:54:00 Test Item Value Reference Range Interpretation Comments Hct (test code = Hct) 47.2 42.0-54.0 [facility] CenterBbwrmxyEDDUQLOIPA6544-74-21 18:54:00 Test Item Value Reference Range Interpretation Comments Platelet (test code = Platelet) 204 133-450 [facility] CenterRwgvmntXBXTVHWPIQ3125-20-11 18:54:00 Test Item Value Reference Range Interpretation Comments MPV (test code = MPV) 9.4 7.4-10.4 [facility] CenterLdyiftaSLTKIQPYSO6431-54-06 18:54:00 Test Item Value Reference Range Interpretation Comments RDW (test code = RDW) 12.4 11.5-14.5 [facility] Notes Date/Time Note Provider Source 2017-03-06 EXAM: XR CHEST 2 VIEWS [facility] 08:22:00-00:00 DATE: 03/06/2017 8:12 AM [facility] er INDICATION: - chest pain COMPARISON: 03/22/2014 TECHNIQUE: PA and lateral chest radiograph FINDINGS: Minimal bibasilar subsegmental atelectasis is pr esent. No focal consolidations, pleural effusions, pneu mothorax are identified. Pulmonary vascularity is normal. Mild cardiomegaly is present, not significantly changed from the prior study. No acute bony abnormality is identified. IMPRESSION: Minimal bibasilar subsegmental atelectasis. Unchanged mild cardiomegaly. 2014-03-22 EXAM: XR CHEST 1 VIEW [facility] 13:46:00-00:00 Center DATE: 2014-03-22 13:55:00 INDICATION: Chest pain COMPARISON: December 23, 2010 TECHNIQUE: A single AP chest radiograph FINDINGS: The lung volumes a re low. No pulmonary or pleural-based abnormality is identified. The cardiomediastinal silhouette is normal, given the technique. The remaining soft tissues and osseous structures are unremarkable. IMPRESSION: No acute cardiopulmonary disease. 2014-03-22 EXAM: XR RIGHT HAND 3 VIEWS [facility] 13:05:00-00:00 EXAM: XR RIGHT WRIST [address] DATE: 2014-03-22 13:15:00 INDICATION: Trauma; hand pain since Friday COMPARISON: None. TECHNIQUE: PA, lateral and o blique radiographs of the right hand. AP, lateral, and oblique views were obtained of the right wrist. FINDINGS: An oblique fractur e through the right scaphoid is seen, with extension to the scaphoid waist on the ulnar aspect and to the distal pole on the radial aspect. There is mild displacement. There is soft tissue swelling about the wrist. IMPRESSION: Mildly displaced, oblique fracture through the s caphoid. 2014-03-22 EXAM: XR RIGHT HAND 3 VIEWS [facility] 13:05:00-00:00 EXAM: XR RIGHT WRIST [address] [facility] [address] DATE: 2014-03-22 13:15:00 INDICATION: Trauma; hand pain since Friday COMPARISON: None. TECHNIQUE: PA, lateral and o blique radiographs of the right hand. AP, lateral, and oblique views were obtained of the right wrist. FINDINGS: An oblique fractur e through the right scaphoid is seen, with extension to the scaphoid waist on the ulnar aspect and to the distal pole on the radial aspect. There is mild displacement. There is soft tissue swelling about the wrist.
[2023-03-15 20:27] LABS: Absolute Lymphocytes (CBC) 2.7 K/uL (0.7-4.9); Hematocrit 39.3 % (39.6-49.0); Lymphocytes % 33.8 % (15.3-44.8); MCV 82.8 fL (80-100); MPV 8.4 fL (7.6-11.3); RBC Red Blood Cell Count 4.74 M/uL (4.33-5.43)
[2023-03-15] MEDS ORDERED: TDAP (DIPHTH,PERTUSS(ACELL),TET VAC) 0.5 ML VIAL IMVAC ONE (20:41)
[2023-03-15] MEDS ORDERED: HYDROMORPHONE HCL 1 MG/ML INJ ONE ×2 (20:41→22:12)
[2023-03-15 21:01] LABS: Potassium 3.8 mEq/L (3.5-5.1)
--- NOTE | 2023-03-15 21:13 | RAD REPORT ---
EXAM DESCRIPTION: RAD -Hand Left 3 View - 03/15/2023 8:57 pm CLINICAL HISTORY: Left hand pain status post injury FINDINGS: No fracture or dislocation is seen. A radiopaque foreign body is not visualized. Two images are submitted
[2023-03-15] MEDS ORDERED: KETOROLAC 30 MG/ML INJ ONE (21:23)
[2023-03-15] MEDS ORDERED: CEFAZOLIN SODIUM 1 GM/VIAL ONE (21:23)
[2023-03-15] MEDS ORDERED: NA CHLORIDE 0.9% 1,000 ML ONE (21:23)
[2023-03-15] MEDS ORDERED: NA CHLORIDE 0.9% 100 ML ONE (21:24)
--- NOTE | 2023-03-15 21:43 | EDPHYS ---
Physician Documentation [facility] Name: Sadiq Hanson Jr Age: 47 yrs Sex: Male : 1975 Arrival Date: 03/15/2023 Time: 19:29 Bed 19 Private MD: ED Physician Monty Sahni HPI: 03/15 20:05 This 47 yrs old Male presents to ER via Ambulatory with complaints of FISH SALLY cp INJURY-ARM/HAND. 20:05 The patient or guardian reports injury, a puncture wound, fish sally. cp 20:05 The complaints affect the left index finger. Context: [place]. Onset: The symptoms/episode began/occurred just prior to arrival. Associated signs and symptoms: The patient has no apparent associated signs or symptoms. Severity of symptoms: in the emergency department the symptoms severe pain. Historical: - Allergies: 19:42 fluoroquinolone; vc1 - PMHx: 19:42 Hypertensive disorder; Diabetes mellitus; vc1 - PSHx: 19:42 Lithotripsy; vc1 - Immunization history:: Client reports receiving the 2nd dose of the Covid vaccine, Last tetanus immunization: unknown. - Social history:: Smoking status: Patient reports the use of cigarette tobacco products, cigars. ROS: 20:10 Skin: Positive for puncture, of the left index finger. cp 20:10 Constitutional: Negative for body aches, chills, fever, poor PO intake. cp 20:10 Eyes: Negative for injury, pain, redness, and discharge. cp 20:10 Respiratory: Negative for cough, shortness of breath, wheezing. 20:10 Abdomen/GI: Negative for abdominal pain, nausea, vomiting, and diarrhea. 20:10 Neuro: Negative for altered mental status, dizziness, headache, weakness. 20:10 All other systems are negative. Exam: 20:15 Constitutional: The patient appears in no acute distress, alert, awake, non-toxic, well cp developed, well nourished, obese, in obvious pain, uncomfortable. 20:15 Head/Face: Normocephalic, atraumatic. cp 20:15 Eyes: Periorbital structures: appear normal, Conjunctiva: normal, no exudate, no injection, Sclera: no appreciated abnormality, Lids and lashes: appear normal, bilaterally. 20:15 ENT: External ear(s): are unremarkable, Nose: is normal, Mouth: Lips: moist, Oral mucosa: pink and intact, moist, Posterior pharynx: is normal, airway is patent, no erythema, no exudate. 20:15 Chest/axilla: Inspection: normal. 20:15 Cardiovascular: Rate: normal, Rhythm: regular. 20:15 Respiratory: the patient does not display signs of respiratory distress, Respirations: normal, no use of accessory muscles, no retractions, labored breathing, is not present, Breath sounds: are clear throughout, no decreased breath sounds, no stridor, no wheezing. 20:15 Abdomen/GI: Exam negative for discomfort, distension, guarding, Inspection: abdomen appears normal. 20:15 Skin: injury, puncture(s), that are deep, of the radial side of middle phalanx left index finger proximal to proximal interphalangeal joint, mild erythema, swelling, marked pain to palpation, pain with passive ROM left index interphalangeal joint. 20:15 Neuro: Orientation: to person, place \T\ time. Mentation: is normal. Vital Signs: 19:40 Weight 112.04 kg; Height 5 ft. 11 in. ; Pain 10/10; vc1 19:44 BP 151 / 108; Pulse 97; Resp 20; Temp 98.4; Pulse Ox 96% ; vc1 21:45 BP 150 / 110; Pulse 91; Resp 18 S; Pulse Ox 95% on R/A; ha1 19:40 Body Mass Index 34.45 (112.04 kg, 180.34 cm) vc1 19:40 Pain Scale: Adult vc1 MDM: 19:50 Patient medically screened. cp 20:00 Differential diagnosis: open fracture, cellulitis, foreign body. cp 21:11 Data reviewed: vital signs, nurses notes, lab test result(s), radiologic studies, plain cp films. Management of patient was discussed with the following: Street Photographer: DR Lopez who will see patient in clinic on 03/17/2023 at 0900 for clinic f/u. 21:41 I considered the following discharge prescriptions or medication management in the emergency department Medications were administered in the Emergency Department. See NOV. 21:41 Independent interpretation of the following test(s) in the Emergency Department X-Ray: My interpretation is images of left hand negative for fracture and negative for foreign body. Care significantly affected by the following chronic conditions: Diabetes, Hypertension. Counseling: I had a detailed discussion with the patient and/or guardian regarding: the historical points, exam findings, and any diagnostic results supporting the discharge/admit diagnosis, lab results, radiology results, the need for outpatient follow up, a hand specialist. Response to treatment: the patient's symptoms have markedly improved after treatment, and as a result, I will discharge patient. 03/15 19:59 Order name: Basic Metabolic Panel; Complete Time: 21:09 cp 03/15 21:09 Interpretation: Normal except: GLUC 123. cp 03/15 19:59 Order name: CBC with Diff; Complete Time: 20:58 cp 03/15 21:09 Interpretation: Normal except: HGB 13.3; HCT 39.3; BASO% 1.4. cp 03/15 19:59 Order name: PT-INR cp 03/15 21:11 Order name: Hand Left 2 View; Complete Time: 21:14 EDMS 03/15 19:59 Order name: EKG; Complete Time: 19:59 cp 03/15 19:59 Order name: Cardiac monitoring; Complete Time: 20:26 cp 03/15 19:59 Order name: EKG - Nurse/Tech; Complete Time: 22:30 cp 03/15 19:59 Order name: IV Saline Lock; Complete Time: 20:26 cp 03/15 19:59 Order name: Labs collected and sent; Complete Time: 20:26 cp 03/15 19:59 Order name: O2 Per Protocol; Complete Time: 20:26 cp 03/15 19:59 Order name: O2 Sat Monitoring; Complete Time: 20:26 cp 03/15 21:11 Order name: Splint - Finger; Complete Time: 22:31 cp Administered Medications: 20:49 Drug: HYDROmorphone IVP 1 mg Route: IVP; Site: left forearm; ha1 21:05 Follow up: Response: No adverse reaction; Pain is unchanged, physician notified; RASS: ha1 Alert and Calm (0) 21:26 Drug: Ketorolac IVP 15 mg Route: IVP; Site: right forearm; ha1 21:30 Follow up: Response: No adverse reaction; Pain is unchanged, physician notified ha1 21:28 Drug: NS 0.9% IV 1000 ml Route: IV; Rate: 1 bolus; Site: right forearm; ha1 21:29 Drug: ceFAZolin IVPB 1 grams Route: IVPB; Site: right forearm; ha1 22:00 Follow up: Response: No adverse reaction; IV Status: Completed infusion; IV Intake: ha1 100ml 22:15 Drug: HYDROmorphone IVP 1 mg Route: IVP; Site: right forearm; ha1 22:26 Follow up: Response: No adverse reaction; Pain is decreased; RASS: Alert and Calm (0) ha1 22:15 Drug: Doxycycline PO 100 mg Route: PO; ha1 22:26 Follow up: Response: No adverse reaction ha1 22:31 Drug: Tetanus-Diphtheria Toxoid IM Adult 0.5 ml {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 ha Exp: 07/15/2025. Lot #: [id number]. } Route: IM; Site: right vastus lateralis; Disposition: 03/16 00:09 Co-signature as Attending Physician, Monty Sahni MD I agree with the assessment and kdr plan of care. Disposition Summary: 03/15/23 21:42 Discharge Ordered Location: Home cp Problem: new cp Symptoms: have improved cp Condition: Stable cp Diagnosis - Puncture wound without foreign body of left index finger without damage to nail, cp initial encounter Followup: cp - With: Michael Lopez MD - When: 03/17/2023 - Reason: Wound Recheck Discharge Instructions: - Discharge Summary Sheet cp - Puncture Wound cp Forms: - Medication Reconciliation Form cp - Thank You Letter cp - Antibiotic Education cp - Prescription Opioid Use cp - [email or web address] cp Prescriptions: - acetaminophen-codeine 300-30 mg Oral tablet - take 2 tablet by ORAL route every 8-10 hours As needed; 16 tablet; Refills: 0, cp Product Selection Permitted - Doxycycline Hyclate 100 mg Oral Tablet - take 1 tablet by ORAL route every 12 hours; 20 tablet; Refills: 0, Product cp Selection Permitted - Diclofenac Sodium 75 mg Oral Tablet Sustained Release - take 1 tablet by ORAL route 2 times per day; 30 tablet; Refills: 0, Product cp Selection Permitted - Bactrim DS 800-160 mg Oral Tablet - take 1 tablet by ORAL route every 12 hours for 10 days; 20 tablet; Refills: 0, cp Product Selection Permitted Signatures: Dispatcher [employer] LUIS FERNANDOCT Monty Sahni MD MD kdr Loc Andrew PA PA cp Calcote, Vanessa RN RN vc1 Kait Araujo RN RN ha1 Corrections: (The following items were deleted from the chart) 03/15 19:44 19:42 Allergies: No Known Allergies; [place] [id number] 21:11 20:00 Hand Left 3 View+RAD.RAD.BRZ ordered. [facility] 03/16 19:46 03/15 20:30 Skin: Positive for puncture, of the left index finger, cp cp
--- NOTE | 2023-03-15 21:43 | ER ---
Nurse's Notes [facility] Name: Sadiq Hanson Jr Age: 47 yrs Sex: Male : 1975 Arrival Date: 03/15/2023 Time: 19:29 Bed 19 Private MD: Diagnosis: Puncture wound without foreign body of left index finger without damage to nail, initial encounter Presentation: 03/15 19:40 Chief complaint: Patient states: Fish hook left index finger. Coronavirus screen: vc1 Vaccine status: Patient reports receiving the 2nd dose of the covid vaccine. moderna plus booster. Ebola Screen: Patient negative for fever greater than or equal to 101.5 degrees Fahrenheit, and additional compatible Ebola Virus Disease symptoms Patient denies exposure to infectious person. Patient denies travel to an Ebola-affected area in the 21 days before illness onset. No symptoms or risks identified at this time. Risk Assessment: Do you want to hurt yourself or someone else? Patient reports no desire to harm self or others. Onset of symptoms was March 15, 2023 at 18:41. 19:40 Method Of Arrival: Ambulatory vc1 19:40 Acuity: MAHAMED 4 vc1 19:46 Initial Sepsis Screen: Does the patient meet any 2 criteria? HR > 90 bpm. No. Patient's vc1 initial sepsis screen is negative. Does the patient have a suspected source of infection? Yes: Skin breakdown/wound. Triage Assessment: 19:45 General: Appears distressed, uncomfortable, Behavior is cooperative. Pain: Complains of vc1 pain in left hand Pain currently is 10 out of 10 on a pain scale. Quality of pain is described as sharp, stabbing, Pain began 1 hour ago. Noted to be resistant to movement. EENT: No deficits noted. No signs and/or symptoms were reported regarding the EENT system. Neuro: Level of Consciousness is awake, alert, obeys commands, Oriented to person, place, time, situation, Appropriate for age. Cardiovascular: No deficits noted. Respiratory: Airway is patent Respiratory effort is even, unlabored, Respiratory pattern is regular, symmetrical. GI: No deficits noted. No signs and/or symptoms were reported involving the gastrointestinal system. : No deficits noted. No signs and/or symptoms were reported regarding the genitourinary system. Derm: No deficits noted. No signs and/or symptoms reported regarding the dermatologic system. Musculoskeletal: Reports cant move 3rd, 4th, or 5th digit in left hand. Injury Description: Puncture sustained to left hand. Historical: - Allergies: 19:42 fluoroquinolone; vc1 - PMHx: 19:42 Hypertensive disorder; Diabetes mellitus; vc1 - PSHx: 19:42 Lithotripsy; vc1 - Immunization history:: Client reports receiving the 2nd dose of the Covid vaccine, Last tetanus immunization: unknown. - Social history:: Smoking status: Patient reports the use of cigarette tobacco products, cigars. Screenin:45 [facility] ED Fall Risk Assessment (Adult) History of falling in the last 3 months, vc1 including since admission No falls in past 3 months (0 pts) Confusion or Disorientation No (0 pts) Intoxicated or Sedated No (0 pts) Impaired Gait No (0 pts) Mobility Assist Device Used No (0 pt) Altered Elimination No (0 pt) Score/Fall Risk Level 0 - 2 = Low Risk Oriented to surroundings, Maintained a safe environment, Educated pt \T\ family on fall prevention, incl call for assistance when getting out of bed. Abuse screen: Denies threats or abuse. Nutritional screening: No deficits noted. Tuberculosis screening: No symptoms or risk factors identified. Assessment: 19:45 General: Appears uncomfortable, Behavior is calm, cooperative. Pain: Complains of pain ha1 in left hand Pain does not radiate. Pain currently is 10 out of 10 on a pain scale. Quality of pain is described as throbbing. Neuro: Level of Consciousness is awake, alert, obeys commands, Oriented to person, place, time, situation. Cardiovascular: Patient's skin is warm and dry. Respiratory: Airway is patent Respiratory effort is even, unlabored, Respiratory pattern is regular, symmetrical. Derm: Reports a fish hook went through his left hand middle finger. 20:45 Reassessment: Patient and/or family updated on plan of care and expected duration. Pain ha1 level reassessed. Patient is alert, oriented x 3, equal unlabored respirations, skin warm/dry/pink. 21:44 Reassessment: Patient and/or family updated on plan of care and expected duration. Pain ha1 level reassessed. Patient is alert, oriented x 3, equal unlabored respirations, skin warm/dry/pink. Vital Signs: 19:40 Weight 112.04 kg; Height 5 ft. 11 in. ; Pain 10/10; vc1 19:44 BP 151 / 108; Pulse 97; Resp 20; Temp 98.4; Pulse Ox 96% ; vc1 21:45 BP 150 / 110; Pulse 91; Resp 18 S; Pulse Ox 95% on R/A; ha1 19:40 Body Mass Index 34.45 (112.04 kg, 180.34 cm) vc1 19:40 Pain Scale: Adult vc1 ED Course: 19:34 Patient arrived in ED. [id number] 19:41 Triage completed. vc1 19:42 Loc Andrew PA is PHCP. cp 19:42 Monty Sahni MD is Attending Physician. cp 19:44 Arm band placed on right wrist. vc1 20:09 Kait Araujo RN is Primary Nurse. ha1 20:26 Basic Metabolic Panel Sent. ha1 20:26 CBC with Diff Sent. ha1 20:26 PT-INR Sent. ha1 20:58 X-ray completed. Portable x-ray completed in exam room. Patient tolerated procedure mh1 well. 21:11 Hand Left 2 View In Process Unspecified. EDMS 21:41 Michael Lopez MD is Referral Physician. cp Administered Medications: 20:49 Drug: HYDROmorphone IVP 1 mg Route: IVP; Site: left forearm; ha1 21:05 Follow up: Response: No adverse reaction; Pain is unchanged, physician notified; RASS: ha1 Alert and Calm (0) 21:26 Drug: Ketorolac IVP 15 mg Route: IVP; Site: right forearm; ha1 21:30 Follow up: Response: No adverse reaction; Pain is unchanged, physician notified ha1 21:28 Drug: NS 0.9% IV 1000 ml Route: IV; Rate: 1 bolus; Site: right forearm; ha1 21:29 Drug: ceFAZolin IVPB 1 grams Route: IVPB; Site: right forearm; ha1 22:00 Follow up: Response: No adverse reaction; IV Status: Completed infusion; IV Intake: ha1 100ml 22:15 Drug: HYDROmorphone IVP 1 mg Route: IVP; Site: right forearm; ha1 22:26 Follow up: Response: No adverse reaction; Pain is decreased; RASS: Alert and Calm (0) ha1 22:15 Drug: Doxycycline PO 100 mg Route: PO; ha1 22:26 Follow up: Response: No adverse reaction ha1 22:31 Drug: Tetanus-Diphtheria Toxoid IM Adult 0.5 ml {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 ha1 Exp: 07/15/2025. Lot #: [id number]. } Route: IM; Site: right vastus lateralis; Medication: 19:47 VIS not applicable for this client. vc1 Intake: 22:00 IV: 100ml; Total: 100ml. ha1 Outcome: 21:42 Discharge ordered by MD. elizalde 22:25 Patient left the ED. 1 Signatures: Dispatcher [employer] EDMS Mary David 1 Loc Andrew PA PA cp Jeffries, Jennifer [id number] Savannah Zamudio RN RN 1 Kait Araujo RN RN 1 Corrections: (The following items were deleted from the chart) 19:44 19:42 Allergies: No Known Allergies; 1 1 21:11 20:59 In radiology for Hand Left 3 View+RAD.RAD.BRZ. EDMS EDMS
[2023-03-15] MEDS ORDERED: DOXYCYCLINE 100 MG CAP PO ONE (22:12)
[2023-03-15 22:39] VITALS: TEMP 98.4
[2023-03-15 22:41] VITALS: BP 150/110; O2SAT 95
[2023-03-15 22:45] LABS: Protime INR 1.05
== END 2023-03-15 22:25 | disposition home or self-care (01) ==
LOC: ER 19:29
DX: S61.231A Puncture wound without foreign body of left index finger without damage to nail, initial encounter (principal); Y92.832 Beach as the place of occurrence of the external cause; Y93.89 Activity, other specified; E11.9 Type 2 diabetes mellitus without complications; I10 Essential (primary) hypertension; Z23 Encounter for immunization; F17.200 Nicotine dependence, unspecified, uncomplicated; Z88.8 Allergy status to other drugs, medicaments and biological substances
CPT/HCPCS: 85025; 80048; 36415; 85610; 73120; 90471; 99284; J1170 ×2; J7030; J0690